=== PATIENT | female | born 1945 | race Caucasian/White ===

== ENCOUNTER 2022-05-27 23:24 | Emergency (ER) | payer MEDICARE, OTHER, SELFPAY ==
[2022-05-27 23:34] VITALS: BP 165/95; PULSE 78; RESP 20; TEMP 35.8; O2SAT 98; BMI 28.1
--- NOTE | 2022-05-28 00:05 | ED_ITS ---
HPI - General Adult General Time Seen by Provider: 00:06 Date Seen: 05/28/22 Chief complaint: Neck Injury/Pain Stated complaint: No feeling on left side. Time Seen by Provider: 05/27/22 23:55 Source: patient Mode of arrival: ambulatory Limitations: no limitations History of Present Illness HPI narrative: 76-year-old female who comes in with left-sided neck pain. Patient was pushing herself up out of bed with her left arm this morning felt a pop in her neck with immediate onset of pain. Pain is worse with movement, better if she holds still. No fall. Was seen in clinic given prescription for Flexeril which she did not fill she is doing okay but then this evening turned insert having increased pain again. She did have some shooting pain down her left arm but that is resolved. Denies chest pain or shortness of breath. No numbness, tingling, or weakness of the left arm. Review of Systems Status of ROS: Reports: 10 or more systems reviewed and unremarkable except as noted in History and below Exam Narrative: Exam Narrative: General: well nourished , NAD Head: Atraumatic and normocephalic ENT: External ears and external nose are normal Eyes: Conjunctiva clear, pupils are equal reactive, external ocular motions are intact Neck: Decreased motion of the neck especially turning to the left. Trapezius in the cervical paraspinous tenderness on the left. No midline cervical tenderness. Strength and sensation of the left arm intact. Lungs: No respiratory distress Musculoskeletal: No tenderness or deformity Neurologic: No gross focal neurologic deficits Skin: No rashes Psych: Mood and affect are appropriate Const: Vital Signs, click to edit/add: Vital Signs - 24 hr 05/27/22 23:34 Temperature 96.4 F L Pulse Rate [Right Pulse Oximeter] 78 Respiratory Rate 20 Blood Pressure [Le ft Upper Arm] 165/95 H Pulse Oximetry 98 Oxygen Delivery Me thod Room Air Course Course Hospital Course: Patient presents with neck pain today. Differential diagnosis includes but not limited to strain, sprain, fracture, arthritis, disc herniation. Patient with pain left side of the neck when pushing herself up out of bed, felt a pop, also had some shooting pain down left arm earlier. Cervical paraspinous spasm on the left with PCC patent as well. Symptoms are most consistent with strain or sprain, she may also have a small disc herniation has no neurologic dysfunction of the left upper extremity or cervical radicular symptoms at this time. Patient will be given a prescription for Flexeril and prednsione taper, and discharged in stable condition Vital Signs Vital signs: Initial Vital Signs Temperature 96.4 F L 05/27/22 23:34 Temperature Source Temporal Artery Scan 05/27/22 23:34 Pulse Rate 78 05/27/22 23:34 Pulse Rhythm 05/27/22 23:34 Respiratory Rate 20 05/27/22 23:34 Blood Pressure 165/95 H 05/27/22 23:34 Blood Pressure Mean 118 05/27/22 23:34 Blood Pressure Position Sitting 05/27/22 23:34 Pulse Oximetry 98 05/27/22 23:34 Oxygen Delivery Method 05/27/22 23:34 Vital Signs Temperature 96.4 F L 05/27/22 23:34 Pulse Rate 78 05/27/22 23:34 Respiratory Rate 20 05/27/22 23:34 Blood Pressure 165/95 H 05/27/22 23:34 Pulse Oximetry 98 05/27/22 23:34 Oxygen Delivery Method 05/27/22 23:34 Temperature 96.4 F L 05/27/22 23:34 Pulse Rate 78 05/27/22 23:34 Respiratory Rate 20 05/27/22 23:34 Blood Pressure 165/95 H 05/27/22 23:34 Pulse Oximetry 98 05/27/22 23:34 Oxygen Delivery Method 05/27/22 23:34 Medical Decision Making Medical Records Medical records reviewed: Yes I reviewed the patient's medical records Lab Data Lab results reviewed: Yes I reviewed the patient's lab results Discharge Plan Discharge Clinical Impression: Cervical disc herniation, Cervical muscle strain Patient Disposition: Home, Self-Care Condition: Stable Instructions: Cervical Strain (DC), Cervical Disc Herniation (ED) Additional Instructions: Take Tylenol for pain. Take prednisone as prescribed. Take Flexeril as prescribed. Follow-up with your primary care doctor this week. Activity Level: Activity as Tolerated Discharge Diet: Regular Follow Up/Referrals: Ananth Gale MD [Primary Care Provider] - Stand Alone Forms: [employer] Info Instructions
== END 2022-05-28 00:43 | disposition home or self-care (01) ==
PROVIDERS: Emergency Provider Family Medicine; PCP Family Medicine
DX: M50.20 Other cervical disc displacement, unspecified cervical region (principal)
CPT/HCPCS: 99282; 99283

== ENCOUNTER 2022-06-12 08:32 | Emergency (ER) | payer MEDICARE, OTHER, SELFPAY ==
[2022-06-12] VITALS (11 sets, daily range): BP systolic 102–141; BP diastolic 64–88; PULSE 68–79; RESP 16–18; TEMP 36.2; O2SAT 93–100; BMI 27.4
--- NOTE | 2022-06-12 09:03 | CRLHL7_ITS ---
For Patients: As a result of the Century Cures Act, medical imaging exams and procedure reports are released immediately into your electronic medical record. You may view this report before your referring provider. If you have questions, please contact your health care provider. Indication: Vision change, pupil change in headache Technique: Volumetric multidetector CT images of the head were obtained without the administration of low osmolar intravenous contrast. Comparison: None available Findings: There is no intra-axial or extra-axial fluid collection. There is no mass effect or midline shift. There is age-related cortical atrophy with mild sulcal widening and ex vacuo dilatation of the lateral ventricles. There is demonstration of prominent extra-axial CSF space within the posterior fossa commensurate with likely sharri cisterna magna versus arachnoid cystic changes. There are chronic small vessel disease changes in the subcortical and periventricular white matter without lost daily-white differentiation. The orbits and their contents are grossly within normal limits. The bony calvarium is grossly intact. The paranasal sinuses are clear. The mastoid air cells are well aerated. Impression: 1. Age-related changes of the brain without acute intracranial abnormality. Please note that all CT scans at this facility use dose modulation, iterative reconstruction, and/or weight-based dosing when appropriate to reduce radiation dose to as low as reasonably achievable. Dictated by Nathan Royal MD @ 06/12/2022 9:50:06 AM (Electronically Signed)
--- NOTE | 2022-06-12 09:05 | ED.NURSE ---
Risk Assessor assessment of patient as follows: Patient alert and oriented x4. She awoke this morning with blurred vision in left eye. Denies any recent visual procedures or changes otherwise, wears glasses regularly. Drove herself to her PT appointment where therapist thought her left eye was not responding to light. They sent patient to ED for evaluation. Patient with nausea intermittently this morning. Has throbbing sensation in right frontal area. No weakness or deficits to extremities, smile equal, speech normal. 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 Slight nausea at time of exam. Patient accompanied by today. Per facility manager, patient was ambulatory into ED without difficulty.
--- NOTE | 2022-06-12 09:09 | ED.NURSE ---
Patient to radiology for CT scan via wheelchair. She notes nausea has resolved at this time. Has a throbbing sensation in right frontal area of head. Blurred vision to left eye persists.
--- NOTE | 2022-06-12 09:18 | ED.NURSE ---
Dr. Cooley in with patient for exam.
--- NOTE | 2022-06-12 09:31 | CRLHL7_ITS ---
For Patients: As a result of the Cures Act, medical imaging exams and procedure reports are released immediately into your electronic medical record. You may view this report before your referring provider. If you have questions, please contact your health care provider. INDICATION: POSSIBLE MASS TECHNIQUE: Chest 2 views COMPARISON: None FINDINGS: Cardiovascular and mediastinum: Cardiac silhouette upper limits normal. Vascular calcifications in the aortic arch. Normal central pulmonary vessels. Lungs and pleural spaces: Lungs are clear. No sign of infiltrate or mass. No sign of pleural effusion. No pneumothorax. Bones and soft tissues: No significant findings. IMPRESSION: Clear lungs. No suspicious findings. Dictated by Ananth Rodriguez MD @ 06/12/2022 10:34:55 AM (Electronically Signed)
[2022-06-12 09:58] LABS: Basophils Absolute Auto 0.03 K/uL (0.00-0.30); Basophils Percent Auto 0.6 % (0.0-3.0); Eosinophils Absolute Auto 0.02 K/uL (0.00-0.50); Eosinophils Percent Auto 0.4 % (0.0-7.0); Hematocrit 40.3 % (33.0-51.0); Hemoglobin* 13.5 gm/dL (12.0-16.0); Lymphocytes Percent Auto 30.1 % (20-44); Mean Corpuscular HGB Conc 34 gm/dL (32-36); Mean Corpuscular Hemoglobin 32 pg (26-34); Mean Corpuscular Volume 94 fL (80-100); Monocytes Percent Auto 6.8 % (0.0-11.0); Neutrophils Percent Auto 62.1 % (42.0-72.0); Platelet Count* 306 K/uL (140-440); RDW Coefficient of Variation % 12.1 % (11.5-15.5); Red Blood Count 4.29 m/uL (4.00-5.20); White Blood Count* 5.31 K/uL (4.50-11.00)
[2022-06-12 10:01] LABS: Slide Review Reflex No
[2022-06-12 10:07] LABS: Chloride* 99 mmol/L (96-114)
[2022-06-12 10:08] LABS: Potassium* 4.2 mmol/L (3.6-5.1); Sodium* 135 mmol/L (135-149)
[2022-06-12 10:10] LABS: Creatinine* 0.6 mg/dL (0.5-1.5); Estimated Glomerular Filt Rate 94 ml/min
[2022-06-12 10:11] LABS: Blood Urea Nitrogen* 15 mg/dL (7-30); Calcium* 9.7 mg/dL (8.4-10.6); Carbon Dioxide* 31 mmol/L (20-32); Glucose* 106 mg/dL (60-115)
[2022-06-12 10:15] LABS: C Reactive Protein* < 0.5 mg/dL (0.5-1.0)
--- NOTE | 2022-06-12 10:21 | CRLHL7_ITS ---
For Patients: As a result of the Cures Act, medical imaging exams and procedure reports are released immediately into your electronic medical record. You may view this report before your referring provider. If you have questions, please contact your health care provider. INDICATION: Vision loss in the right eye. TECHNIQUE: Sagittal T1 axial FLAIR T2 diffusion-weighted and susceptibility weighted images of the brain. COMPARISON: CT brain dated 06/12/2022. FINDINGS: The lateral 3rd and 4th ventricles are normal in size and shape. There is no evidence of recent ischemic infarction. There are no areas of diffusion restriction. There is no evidence of intracranial hemorrhage. There are a few small foci of FLAIR/T2 hyperintensity within the supratentorial white matter that are consistent with mild chronic microvascular ischemia as well as prominent perivascular fluid spaces. 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 The brainstem and cerebellum otherwise appear normal. Usual expected flow voids within the intracranial internal carotid and basilar arteries and proximal trunks of the major cerebral arteries implies gross patency of these major vascular structures. No posterior orbital or suprasellar mass. Minimal fluid signal in the left petrous apex. The paranasal sinuses are otherwise clear. IMPRESSION: 1. No evidence of acute infarction, intracranial hemorrhage, mass nor posterior orbital or suprasellar lesion is seen. 2. Few tiny signal changes consistent with mild chronic microvascular ischemia. Dictated by Weston Keys MD @ 06/12/2022 11:52:57 AM (Electronically Signed)
[2022-06-12] MEDS: LORazepam 2 MG/ML inj 1 MG IVP (10:46)
[2022-06-12] MEDS: ASPIRIN 81 MG TAB.CHEW 324 MG PO (10:46)
--- NOTE | 2022-06-12 10:56 | ED.NURSE ---
Patient to radiology for MRI.
--- NOTE | 2022-06-12 15:59 | ED.EYEPROB ---
HPI - Eye Problem General Chief complaint: Eye Problems Stated complaint: Blurry vission in left eye/pupil not reacting Time Seen by Provider: 06/12/22 08:38 History of Present Illness HPI Narrative: Patient is a very nice 76-year-old female who presents here for evaluation blurriness in her left eye. Had this since this morning she woke up at 4:30 a.m., she notes that she closes her right eye is blurry but she closes her left eye that she is able to see normal. Have any pain in the eye, there is no feeling like a black she ate is been pulled over I or feeling she can not see out of the sides. She denies this happening previously, this is not associated with any headache diplopia double vision fevers chills or sweats, or any other complaints. Went to see her physical therapist today that she is going to for exercises, she thought her eyes were unequal, and that she should be seen because there is no pupillary response. She does tell me that she has a history of anxiety also. chief complaint: vision change Onset (ago): hour(s) (6) Onset description: awoke with symptoms Duration: constant Location: left eye Eye Symptoms: blurry vision Place: home Mechanism: none Severity: mild Associated symptoms: none Treatments Prior to Arrival: none Related Data Patient tetanus UTD: Yes Home Medications Medication Instructions Recorded Confirmed atorvastatin 40 mg tablet mg 06/12/22 famotidine 20 mg tablet mg 06/12/22 rosuvastatin 10 mg tablet mg 06/12/22 Allergies Allergy/AdvReac Type Severity Reaction Status Date / Time fentanyl AdvReac Severe Verified 06/12/22 09:10 ciprofloxacin [From Cipro] AdvReac Intermediate Diarrhea Verified 06/12/22 09:10 codeine AdvReac Intermediate nausea and Verified 06/12/22 09:10 vomiting Review of Systems Status of ROS: Reports: 6 or more systems reviewed and unremarkable except as noted in History and below [facility] Social History Smoking Status: Never smoker Do you use any of these nicotine containing products: None Second hand tobacco smoke exposure: No How often do you have a drink containing alcohol: never How often do you have six or more drinks on one occasion: Never AUDIT-C Alcohol total score: 0 Non-prescribed substance use: denies use service: No Exam Narrative: Exam Narrative: Patient is seen and stab 2 in no apparent distress, she is speaking to me normally and eloquent, her speech is normal, pupils are equal round reactive to light, I do not see any inequality, fundi appear normal to this examiner, visual dutta are normal from my testing. Extraocular muscles are normal, face is normal, cranial nerves 3-12 are normal, her TMs are normal, oropharynx is normal carotid upstrokes are equal bilaterally JVP is flat, chest is clear evaluate wheezing crackles noted heart sounds are normal, abdomen is soft there is no guarding, her strength is normal distally and proximally, good coordination is noted, finger-nose testing is normal, with some past pointing noted in her right and the left. Skin reveals no petechiae rashes, is able to walk normally., Const: Vital Signs, click to edit/add: Vital Signs - 24 hr 06/12/22 08:52 06/12/22 09:05 06/12/22 09:05 Temperature 97.2 F L Pulse Rate [Right Pulse Oximeter] 68 74 74 Respiratory Rate 18 18 16 Blood Pressure [Ri ght Upper Arm] 132/74 128/88 128/88 Pulse Oximetry 93 99 99 Oxygen Delivery Wa thod Room Air Room Air Room Air 06/12/22 09:20 06/12/22 09:35 06/12/22 09:50 Temperature Pulse Rate [Right Pulse Oximeter] 71 76 79 Respiratory Rate 16 16 16 Blood Pressure [Ri ght Upper Arm] 132/70 126/83 102/75 Pulse Oximetry 100 100 [facility] Air 06/12/22 10:05 06/12/22 10:20 06/12/22 10:35 Temperature Pulse Rate [Right Pulse Oximeter] 71 68 75 Respiratory Rate 16 16 18 Blood Pressure [Ri ght Upper Arm] 119/68 139/73 139/64 Pulse Oximetry 98 99 99 [facility] Room Air Room Air 06/12/22 10:50 06/12/22 12:00 06/12/22 13:00 Temperature Pulse Rate [Right Pulse Oximeter] 76 74 79 Respiratory Rate 16 16 16 Blood Pressure [Ri ght Upper Arm] 141/75 H 129/74 134/80 Pulse Oximetry 99 99 99 Oxygen Delivery Me thod Room Air Room Air Room Air Documenting provider has reviewed patient's vital signs: yes Course Course Hospital Course: Course in the emergency room has been 1 of stability, I was able to do a CT of her head which is negative MRI was negative also, her laboratory tests were all reassuring. She is have some blurry altered vision in her left eye which was confirmed on visual acuity testing. I did talk to speak to net software engineer will see her tomorrow in follow-up. I think this is reasonable and patient was very fine with this plan. Vital Signs Vital signs: Initial Vital Signs Temperature 97.2 F L 06/12/22 08:52 Temperature Source Temporal Artery Scan 06/12/22 08:52 Pulse Rate 68 06/12/22 08:52 Respiratory Rate 18 06/12/22 08:52 Blood Pressure 132/74 06/12/22 08:52 Blood Pressure Mean 93 06/12/22 08:52 Blood Pressure Position Sitting 06/12/22 08:52 Pulse Oximetry 93 06/12/22 08:52 Oxygen Delivery Method 06/12/22 08:52 Vital Signs Temperature 97.2 F L 06/12/22 08:52 Pulse Rate 68 06/12/22 08:52 Respiratory Rate 18 06/12/22 08:52 Blood Pressure 132/74 06/12/22 08:52 Pulse Oximetry 93 06/12/22 08:52 Oxygen Delivery Method 06/12/22 08:52 Temperature 97.2 F L 06/12/22 08:52 Pulse Rate 79 06/12/22 13:00 Respiratory Rate 16 06/12/22 13:00 Blood Pressure 134/80 06/12/22 13:00 Pulse Oximetry 99 06/12/22 13:00 Oxygen Delivery Method 06/12/22 13:00 MDM - Eye Problem Differential Diagnosis Differential diagnosis: Likely corneal abrasion, conjunctivitis, acute iritis, hyphema, periorbital cellulitis, subconjunctival hemorrhage, glaucoma, corneal ulcer and ruptured globe Medical Records Attestation: I reviewed the patient's medical records. Lab Data Attestation: I reviewed the patient's lab results. Labs: Lab Results 06/12/22 06/12/22 Range/Units 09:50 09:50 WBC 5.31 (4.50-11.00) K/uL RBC 4.29 (4.00-5.20) m/uL Hgb 13.5 (12.0-16.0) gm/dL Hct 40.3 (33.0-51.0) % MCV 94 (80-100) fL MCH 32 (26-34) pg MCHC 34 (32-36) gm/dL RDW Coeff of Akhil 12.1 (11.5-15.5) % Plt Count 306 (140-440) K/uL Neut % (Auto) 62.1 (42.0-72.0) % Lymph % (Auto) 30.1 (20-44) % [place] % (Auto) 6.8 (0.0-11.0) % Eos % (Auto) 0.4 (0.0-7.0) % Baso % (Auto) 0.6 (0.0-3.0) % Neut # (Auto) 3.30 (1.7-7.0) K/uL Lymph # (Auto) 1.60 (0.90-2.90) K/uL [place] # (Auto) 0.40 (0.00-0.90) K/UL Eos # (Auto) 0.02 (0.00-0.50) K/uL Baso # (Auto) 0.03 (0.00-0.30) K/uL Abs Immat Gran (auto) 0.00 (0.00-0.30) K/uL Sodium 135 (135-149) mmol/L Potassium 4.2 (3.6-5.1) mmol/L Chloride 99 (96-114) mmol/L Carbon Dioxide 31 (20-32) mmol/L BUN 15 (7-30) mg/dL Creatinine 0.6 (0.5-1.5) mg/dL Estimated Creat Clear 45.50 Estimated GFR 94 ml/min Glucose 106 (60-115) mg/dL Calcium 9.7 (8.4-10.6) mg/dL C-Reactive Protein < 0.5 L (0.5-1.0) mg/dL Imaging Data CT scan - head: Attestation: I have reviewed the pertinent imaging results. Radiologist's impression: Patient: NASIMA WOOD Facility: [facility] Site . Site : 1945 Study: MRI Head WITHOUT-06/12/2022 11:35:15 AM Ordering Physician: Lenora Conte Final Report: INDICATION: Vision loss in the right eye. TECHNIQUE: Sagittal T1 axial FLAIR T2 diffusion-weighted and susceptibility weighted images of the brain. COMPARISON: CT brain dated 06/12/2022. FINDINGS: The lateral 3rd and 4th ventricles are normal in size and shape. There is no evidence of recent ischemic infarction. There are no areas of diffusion restriction. There is no evidence of intracranial hemorrhage. There are a few small foci of FLAIR/T2 hyperintensity within the supratentorial white matter that are consistent with mild chronic microvascular ischemia as well as prominent perivascular fluid spaces. 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 The brainstem and cerebellum otherwise appear normal. Usual expected flow voids within the intracranial internal carotid and basilar arteries and proximal trunks of the major cerebral arteries implies gross patency of these major vascular structures. No posterior orbital or suprasellar mass. Minimal fluid signal in the left petrous apex. The paranasal sinuses are otherwise clear. IMPRESSION: 1. No evidence of acute infarction, intracranial hemorrhage, mass nor posterior orbital or suprasellar lesion is seen. 2. Few tiny signal changes consistent with mild chronic microvascular ischemia. Dictated by Weston Keys MD @ 06/12/2022 11:52:57 AM (Electronic Signature) Patient: [facility] Facility: [facility] Site . Site : 1945 Study: XRay Chest 3 IMAGES-06/12/2022 10:08:38 AM Ordering Physician: Lenora Conte Final Report: INDICATION: POSSIBLE MASS TECHNIQUE: Chest 2 views COMPARISON: None FINDINGS: Cardiovascular and mediastinum: Cardiac silhouette upper limits normal. Vascular calcifications in the aortic arch. Normal central pulmonary vessels. Lungs and pleural spaces: Lungs are clear. No sign of infiltrate or mass. No sign of pleural effusion. No pneumothorax. Bones and soft tissues: No significant findings. IMPRESSION: Clear lungs. No suspicious findings. Dictated by Ananth Rodriguez MD @ 06/12/2022 10:34:55 AM (Electronic Signature) Patient: [facility] Facility: [facility] Site . Site : 1945 Study: CT Head W/O-06/12/2022 9:20:20 AM Ordering Physician: Lenora Conte Final Report: Indication: Vision change, pupil change in headache Technique: Volumetric multidetector CT images of the head were obtained without the administration of low osmolar intravenous contrast. Comparison: None available Findings: There is no intra-axial or extra-axial fluid collection. There is no mass effect or midline shift. There is age-related cortical atrophy with mild sulcal widening and ex vacuo dilatation of the lateral ventricles. There is demonstration of prominent extra-axial CSF space within the posterior fossa commensurate with likely sharri cisterna magna versus arachnoid cystic changes. There are chronic small vessel disease changes in the subcortical and periventricular white matter without lost daily-white differentiation. The orbits and their contents are grossly within normal limits. The bony calvarium is grossly intact. The paranasal sinuses are clear. The mastoid air cells are well aerated. Impression: 1. Age-related changes of the brain without acute intracranial abnormality. Please note that all CT scans at this facility use dose modulation, iterative reconstruction, and/or weight-based dosing when appropriate to reduce radiation dose to as low as reasonably achievable. Dictated by Nathan Royal MD @ 06/12/2022 9:50:06 AM (Electronic Signature) ECG Data Attestation: I personally reviewed and interpreted this ECG as follows: Interpretation: Normal sinus rhythm, the 1st EKG look like atrial fibrillation but I disagreed with the computer interpretation as it looks like it is start effect. No acute ST wave changes. Discharge Plan Discharge Clinical Impression: Blurred vision, left eye Patient Disposition: Home w/ Parent or Adult Condition: Stable Instructions: Blurred Vision (ED) Additional Instructions: Home, rest, aspirin 81 mg a day, follow-up tomorrow at 10:20 a.m. with [facility] and Dr. Rossi. Reassurance given. Prescriptions: No Action atorvastatin 40 mg tablet famotidine 20 mg tablet rosuvastatin 10 mg tablet Follow Up/Referrals: Ananth Gale MD [Primary Care Provider] - Stand Alone Forms: [employer] Info Instructions
== END 2022-06-12 13:33 | disposition home or self-care (01) ==
PROVIDERS: Emergency Provider Family Medicine; PCP Family Medicine
DX: H53.8 Other visual disturbances (principal)
CPT/HCPCS: 36415; 70450; 70551; 71046; 80048; 85025; 86140; 93005; 96374; 99283; 99285; A9270; J2060

== ENCOUNTER 2022-06-14 15:19 | Outpatient (CLI) | payer MEDICARE, OTHER, SELFPAY ==
--- OUTSIDE RECORDS SUMMARY | 2022-06-14 15:21 | XMS_ITS | Clinical Summary ---
:1945 Author Organization [facility] [place] [address] Care Team Providers Name Role Phone Shirin Cutler MD Primary Care Provider Allergies Active Allergy Reactions Severity Noted Date Comments Ciprofloxacin Diarrhea 03/17/2013 Codeine Vomiting 11/06/2007 Fentanyl Nausea And Vomiting High 09/02/2019 Pentazocine Behavioral Disturbances 11/07/2007 Medications Medication Sig Dispensed Refills Start End Status Date Date MECLIZINE 12.5 MG 12.5-25 mg Oral 0 0 11/08/19 Active TAB EVERY 6 HOURS 08 NEEDED CALCIUM 500 + D 1-2 tabs daily 0 02/08/20 Active (D3) 500 MG-125 09 UNIT TAB cholecalciferol Take 1 tablet by 0 10/14/19 Active (VITAMIN D3) 1,000 mouth once daily. 10 unit tablet acetaminophen Take by mouth 0 02/21/20 Ac tive (TYLENOL) 325 mg every 4 hours if 17 tablet needed. Max acetaminophen dose: 4000mg in 24 hrs. lutein 20 mg Take 1 capsule by 0 09/08/19 Active capsule mouth once daily. 20 fluticasone (50 mcg Inhale 1 [place] 48 g 5 09/22/19 Active per actuation) into both 21 nasal solution nostrils once (FLONASE)Indication daily. s: Non-seasonal allergic rhinitis due to pollen rosuvastatin Take 1 Tablet (10 90 Tablet 3 12/07/19 Active (CRESTOR) 10 mg mg) by mouth at 22 tabletIndications: bedtime. Palpitations LORazepam (ATIVAN) Take 1-2 Tablets 30 tablet. 1 02/17/20 Active 0.5 mg (0.5-1 mg) by 22 tabIndications: mouth every 6 Anxiety hours if needed for Anxiety. famotidine (PEPCID) Take 1 Tablet (20 180 Tablet 3 04/16/20 Active 20 mg mg) by mouth in 22 tabletIndications: the morning and 1 Chronic GERD Tablet (20 mg) in the evening. cyclobenzaprine Take 1 Tablet (5 15 Tablet 0 05/27/20 Discontinued (FLEXERIL) 5 mg mg) by mouth 3 22 022 (Reorder tabletIndications: times daily if (E-cancel not Upper back pain on needed for Muscle sent)) left side Spasm. cyclobenzaprine Take 1 Tablet (5 15 Tablet 0 06/06/20 Discontinued (FLEXERIL) 5 mg mg) by mouth 3 22 022 (*Med tabletIndications: times daily if complete/Regime Upper back pain on needed for Muscle n left side Spasm. complete/L evel of care ch veronique) nystatin Swish and spit 5 473 mL 0 06/06/20 Dis continued (MYCOSTATIN) mL (500,000 22 022 (*Med 100,000 unit/mL units) by mouth complete/Regime suspensionIndicatio four times daily. n ns: Thrush, oral com plete/Level of care ch veronique) Active Problems Problem Noted Date Hyperlipidemia 11/08/2014 Adenomatous colon polyp 10/23/2013 Overview: Colonoscopy 09/2013 polyp repeat in 2 yea rs Colonoscopy 11/2015 polyp repeat in 5 yea rs Abdominal pain, generalized 11/07/2007 Diarrhea 11/07/2007 Dizziness and giddiness 11/07/2007 Encounters Date Type Specialty Care Team Description 06/14/2022 Office Visit Shirin Cutler, Follow U p (ED follow up MD ); Memory Loss (After resting yesterday afternoon, coul d not remember anythi ng./) 06/14/2022 Travel 06/12/2022 Orders Only Scanner <No scans attac hed> 06/06/2022 Office Visit Shirin Cutler, Follow U p (Urgent care MD visit 06/03 cer vical pain//ED after ); Immunization/In jection; Medication List Update (Her flexeril i s 10 mg/) 06/06/2022 Travel 05/27/2022 Office Visit Janelle Yuan, NATI Neck Truong n/problem 05/27/2022 Travel 05/11/2022 Ancillary Procedure 05/11/2022 Travel 05/08/2022 Travel 04/16/2022 Office Visit Shirin Cutler Establis h Care; Reflux (Has been getti ng worse); Anxiety ; Derm Problem (Spot o n scalp) 04/15/2022 Travel from Last 3 Months Immunizations Name Administration Dates Next Due AMB INFLUENZA IIV3 (AGE 65+ YRS) PF 06/13/2018, 06/14/2017 (Flu Clinic Only) AMB Influenza, IIV3 (Age >=3 06/16/2013, 06/10/2012, 011 years)(Flu Clinic Only) AMB Influenza, IIV4 PF (=>6 mos 05/29/2019 Flulaval,Fluzone Fluarix)(Flu Clinic Only) Amb Influenza, Inact (High-dose) (Flu 06/19/2016, 06/15/2014 Clinic Only) Amb Influenza, Inactivated AIIV4 (Age 1006/08/2020 65+ Years) Preserv Free Influenza A (H1N1), Inactivated (Age 1106/26/2009 >=3 Years) Influenza Virus, Unspecified 05/16/2009, 07/21/2004 Influenza, High-dose Inactivated 06/19/2016, 06/13/2015, Influenza, IIV3 (Age 6-35 mos) 06/13/2011 Influenza, IIV3 (Age >=3 years) 06/16/2013, 06/10/2012, 05/26, 05/26/2009, 06/13/2008, 06/16/2007, 07/21/2004 Influenza, Inactivated AIIV4 (Age 65+ 06/06/2022, 05/05/2021 Years) Preserv Free Pneumococcal Poly,23-Valent 11/04/2013 (Pneumovax) Pneumococcal conj 13-Valent (Prevnar 11/16/2015 13) Td (Age >=7 Years) 07/29/2008, 05/30/1999 Td, Preservative Free (age >= 7 07/29/2008 Years) Tdap 10/21/2018 Zoster (Shingrix-RZV, recombinant) 03/14/2022, 11/06/2021 Family History Medical History Relation Name Comments Heart Disease Father 74 heart at tack Heart attack Half-Brother 1 Heart attack Half-Brother 2 Lung cancer Half-Brother 2 chemical exposur e Cancer-breast Half-Sister 1 Heart attack Half-Sister 1 Heart attack Half-Sister 2 Diabetes Mother Atrial fibrillation Sister Diabetes Sister Relation Name Status Comments Father Half-Brother 1 Other Half-Brother 2 Other Half-Sister 1 Other Half-Sister 2 Mother Sister Social History Tobacco Use Types Packs/Day Years Used Date Never Smoker Smokeless Tobacco: Never Used Tobacco Cessation: Counseling Given: Yes Alcohol Use Standard Drinks/Week Comments Yes 1 (1 standard drink = 0.6 oz pure alcoho l) 1-2 glasses or wine per week Alcohol Habits Answer Date Recorded How often do you have a drink containing 2-4 times a month 09/22/2020 alcohol? How many drinks containing alcohol do you 1 or 2 09/08/2019 have on a typical day when you are drinking? How often do you have six or more drinks Never 09/08/2019 on one occasion? Comment: 1-2 glasses or wine per week 04/16/2022 Sex Assigned at Date Recorded Not on file COVID-19 Exposure Response Date Recorded In the last 10 days, have you been in contact with No / Unsu re 06/14/2022 5:46 AM CDT someone who was confirmed or suspected to have Coronavirus/COVID-19? Obstetrics History Para Term AB IAB SAB Ectopic Multiple Living Live Births 2 2 2 Date Outcome GA Total Labor/2nd/3rd Weight Sex Delivery Anes PTL Layla A 1 A5 Name Clin Labor Term Term Last Filed Vital Signs Vital Sign Reading Time Taken Comments Blood Pressure 140/86 06/14/2022 12:52 PM CDT Pulse 80 06/14/2022 12:52 PM CDT Temperature 36.7 ??C (98 ??F) 06/14/2022 12:52 PM CDT Respiratory Rate 18 05/27/2022 1:12 PM CDT Oxygen Saturation 99% 06/14/2022 12:52 PM CDT Inhaled Oxygen Concentration - - Weight 76.7 kg (169 lb) 06/14/2022 12:52 PM CDT Height 169 cm (5' 6.54) 04/16/2022 2:13 PM CDT with sa venkat Body Mass Index 26.84 04/16/2022 2:13 PM CDT Plan of Treatment Health Maintenance Due Date Last Done Comments Fecal testing non-DNA 1991 (FIT,FOBT,iFOBT) for age 45-75 Depression screening for age 12+ 10/10/2022 10/10/2021, , 05/05/2021, Additional history exists Medicare Wellness for age 65+ 10/10/2022 10/10/2021, 2020, 09/08/2019, Additional history exists BMI (ht and wt on same day) for 04/16/2023 04/16/2022, 11/24, age 18+ 10/10/2021, Additional history exists Mammogram for age 45-75 05/11/2023 05/11/2022, 05/05/2021, 08/27/2019, Additional history exists Lipids for age 45-75 10/10/2026 10/10/2021, 09/22/2020, 09/08/2019, Additional history exists Tetanus booster 10/21/2028 10/21/2018, 07/29/2008, 07/29/2008, Additional history exists Pneumococcal series for age 65+ Completed 11/16/2015, 10/24 DEXA/DXA scan for age 65+ Completed 09/04/2018, 11/11/2014 Hepatitis C screening for age Completed 09/04/2018 18-79 Tdap Completed 10/21/2018 Zoster (shingles) series for age Completed 03/14/2022, 50+ COVID-19 vaccine series Completed 05/30/2022, 11/29/2021, 06/16/2021, Additional history exists Influenza for age 65+ Completed 06/06/2022, 05/05/2021, 06/08/2020, Additional history exists Procedures Procedure Name Priority Date/Time Associated Diagnosis Comme nts SCAN-RADIOLOGY 06/12/2022 12:00 AM Result s for this REPORT CDT procedure are i n the results section. XR MAMMO BILAT Routine 05/11/2022 8:19 AM Visit for screening Results for this SCREENING CDT mammogram procedure are i n the results section. from Last 3 Months Results SCAN-RADIOLOGY REPORT (06/12/2022 12:00 AM CDT) Narrative This result has an attachment that is no t available. Scanner OTHER XR MAMMO BILAT SCREENING (05/11/2022 8:19 AM CDT) Anatomical Region Laterality Modality BREASTS, Breast Left, Breast Right Bilateral Mammo graphy Specimen (Source) Anatomical Location Collection Method / Collectio n Time Received Time / Laterality Volume Impressions 05/11/2022 12:49 PM CDT ??There is no radiographic evidence for malignancy. ??Recommend annual mammograms. MAMMOGRAM ASSESSMENT: ??ACR 1 Negative PATIENTS: You will also receive a letter with your examination results in an easy to read format. ??If you have qu estions about your results, please contact your referring provider. Narrative 05/11/2022 12:49 PM CDT For Patients: As a result of the Cures Act, medical imaging exams and procedure reports are released immediately into your electronic medical record. You may view this report before your referring provider. If you have questions, please contact [facility] provider. XR MAMMO BILAT SCREENING [[id number]] CLINICAL HISTORY: ??This is an asymptoma tic 76 y.o. patient. INDICATION FOR EXAM: Mammogram Screening . TECHNIQUE: CC & MLO views were obtained. ??This study was evaluated with the assistance of Computer-Aided Detecti on. COMPARISON FILM: Yes 05/05/21 [employer] [facility] 08/27/19 [employer] FINDINGS: ??The breasts have scattered a reas of fibroglandular density. There are no dominant masses, suspicious micro calcifications or areas of architectural distortion. Shirin Cutler MD MAMMO from Last 3 Months Insurance Payer Benefit Plan / Subscriber ID Effective Dates Phone Addre ss Type Group MEDICA MR MEDICA PRIME [id number] 2017-Present [address] [address] [employer] [place] , [facility] [place] [id number] Advance Directives Latest Code Status on File Code Status Date Activated Date Inactivated Comments Full Code 11/07/2007 1:25 AM 11/08/2007 1:01 PM Care Teams Scrap Baler Relationship Specialty Start Date End Date Shirin Cutler MD PCP - General Family Practice 05/11/22 [address] [place] [address]
--- NOTE | 2022-06-14 16:30 | CRLHL7_ITS ---
For Patients: As a result of the 21st Century Cures Act, medical imaging exams and procedure reports are released immediately into your electronic medical record. You may view this report before your referring provider. If you have questions, please contact your health care provider. INDICATION: Acute memory impairment. TECHNIQUE: MRI brain: Multiplanar multisequence MR imaging acquired through the brain prior to and following intravenous contrast. MRA head: [id number] imaging acquired. MRA neck: [id number] and postcontrast imaging acquired. COMPARISON: CT brain 06/12/2022. FINDINGS: MRI brain: The ventricles and sulci are within normal limits for patient age. No supratentorial mass effect or midline shift. Two punctate T2 FLAIR hyperintensities within the right frontal white matter, nonspecific. Incidental small midline retrocerebellar arachnoid cyst. No intracranial hemorrhage or pathologic extra-axial fluid collection. No diffusion restriction to suggest acute infarction. No pathologic intracranial enhancement. The major arterial flow voids of the skullbase are preserved. The globes are symmetric. Minimal ethmoid sinus mucosal thickening. Trace left mastoid fluid. Hyperostosis frontalis interna. MRA head: The visualized internal carotid, middle cerebral, and anterior cerebral arteries are widely patent. The vertebral, basilar, and posterior cerebral arteries are widely patent. No intracranial aneurysm or high-flow vascular malformation. MRA neck: The brachiocephalic trunk and subclavian arteries are widely patent. The common carotid arteries are widely patent. The internal carotid arteries are widely patent. The right vertebral artery is dominant. The vertebral arteries are widely patent. IMPRESSION: 1. No acute intracranial abnormality. 2. Two punctate T2 FLAIR hyperintensities in the supratentorial white matter are nonspecific, though typical for sequelae of minimal chronic microvascular ischemic changes or migraine headaches. 3. Unremarkable MRA of the head and neck. Dictated by Chetan La MD @ 06/14/2022 5:56:26 PM (Electronically Signed)
== END 2022-06-14 15:20 | disposition home or self-care (01) ==
LOC: MRI 15:20
PROVIDERS: PCP Family Medicine; Visit Provider Family Medicine
DX: R41.3 Other amnesia (principal); I67.82 Cerebral ischemia; H53.132 Sudden visual loss, left eye
CPT/HCPCS: 70544; 70549; 70553; A9575

== ENCOUNTER 2022-09-13 12:18 | Emergency (ER) | payer MEDICARE, OTHER, SELFPAY ==
[2022-09-13] VITALS (29 sets, daily range): BP systolic 133–159; BP diastolic 74–102; PULSE 66–81; RESP 16; TEMP 37.1; O2SAT 93–100
--- NOTE | 2022-09-13 | CRLHL7_ITS ---
For Patients: As a result of the Century Cures Act, medical imaging exams and procedure reports are released immediately into your electronic medical record. You may view this report before your referring provider. If you have questions, please contact your health care provider. INDICATION: Headache and dizziness TECHNIQUE: CT head without contrast. COMPARISON: Head CT 06/12/2022 FINDINGS: CSF spaces: Posterior fossa arachnoid cyst re-demonstrated. Brain parenchyma: The daily-white differentiation is normal. No sign of mass, hemorrhage, or midline shift. Skull base and calvarium: The visualized paranasal sinuses and mastoid air cells demonstrate no acute or significant findings. The visualized orbits are grossly unremarkable. No skull fractures. IMPRESSION: Unremarkable noncontrast head CT. No intracranial bleed or mass effect. Please note that all CT scans at this facility use dose modulation, iterative reconstruction, and/or weight-based dosing when appropriate to reduce radiation dose to as low as reasonably achievable. Dictated by Leobardo Ocasio MD @ 09/13/2022 1:00:18 PM (Electronically Signed)
--- NOTE | 2022-09-13 12:44 | ED_ITS ---
HPI - General Adult General Time Seen by Provider: 12:45 Date Seen: 09/13/22 Chief complaint: Nausea/Vomiting Stated complaint: Headache, dizzy, thinks it's a stroke Time Seen by Provider: 09/13/22 12:42 Source: patient, family, RN notes reviewed and old records reviewed Mode of arrival: ambulatory Limitations: no limitations History of Present Illness HPI narrative: Marilyn is a very pleasant 77-year-old female with a history of vestibular migraines, recent diagnosis of dementia/Alzheimer's as well as anxiety who comes to the emergency room with her for dizziness and headache. Patient notes she awoke about 645 this morning with a headache on the right side of her head and dizziness. She denies that the room is spinning. She states that she feels very uneasy and is having a hard time remembering things. She did awake at 4 in the morning but does not remember how she felt at that time. Last evening before she went to bed she did complain of a headache on the right side of her head and dozed in a chair before when she went to bed. At this time she denies chest pain numbness or tingling of the extremities vomiting or visual changes. Since May she has been on a baby aspirin daily after experiencing up possible TIA. She describes asymmetric pupils after seeing bright flashing lights in a stamp like configuration in her vision. She was seen he here at the emergency room underwent CT and MRI without any evidence of a stroke. She did have evidence of decreased brain size as well as some small punctate lesions thought to be microvascular disease. She was told to start baby aspirin a day and followed up with neuro Psychiatry after having an additional and counter where she awoke in the middle of the night and could not remember anything. This event prompted extensive evaluation in July and she was diagnosed with short-term memory loss and possibly dementia/Alzheimer's. She was started on Aricept recently but has only taken 2 doses. She is wondering if perhaps how she is feeling is related to the new medication. She states she feels nauseated dizzy and ?crazy as a loon?. Patient tells me that she has a history of what was described as vestibular migraines. When they were living in [place] many years ago at increased elevation she had episodes of headaches and dizziness and was seen by ENT and was told they had she had vestibular migraines. A ENT here in [place] also supported that diagnosis. When she feels that way she has Ativan that she takes that allows her to ?sleep through the migraine? and feel okay. She states that she took 1/4 of a tab of Ativan 0.5 mg earlier this morning along with Tylenol extra-strength. I do ask her if she thinks this is a vestibular migraine and she states that she feels more panicky and has a headache on the right side of her head. She does tell me that she fell 3 weeks ago while getting up out of the toilet and hit the right side of her head. She did not lose consciousness and did not follow-up for it. She notes that the headache had been getting better until the past 2 days after starting Aricept. No change in vision at this time. Related Data Home Medications Medication Instructions Recorded Confirmed atorvastatin 40 mg tablet mg 06/12/22 famotidine 20 mg tablet mg 06/12/22 rosuvastatin 10 mg tablet mg 06/12/22 donepezil 5 mg tablet mg 09/13/22 lorazepam 0.5 mg tablet mg 09/13/22 Allergies Allergy/AdvReac Type Severity Reaction Status Date / Time fentanyl AdvReac Severe Verified 09/13/22 13:49 ciprofloxacin [From Cipro] AdvReac Intermediate Diarrhea Verified 09/13/22 13:49 codeine AdvReac Intermediate nausea and Verified 09/13/22 13:49 vomiting Review of Systems Status of ROS: Reports: 10 or more systems reviewed and unremarkable except as noted in History and below Const: Denies: fever or chills Eyes: Denies: change in vision PFSH PFSH Social History Smoking Status: Never smoker Do you use any of these nicotine containing products: None Second hand tobacco smoke exposure: No How often do you have a drink containing alcohol: never How often do you have six or more drinks on one occasion: Never AUDIT-C Alcohol total score: 0 Non-prescribed substance use: denies use service: No Exam Narrative: Exam Narrative: Initial exam shows patient to be very anxious. She is making good eye contact and following commands. She is describing past history that is somewhat confusing to me. However, her face is symmetrical without droop. She is not slurring her speech. Speech content is appropriate. She is very anxious at this time. Almost tearful. She states that she has for gotten everything but yet is able to recall it when we ask her questions. Head is atraumatic normocephalic. Negative Quintana signs. Neck is supple without lymphadenopathy. Heart with regular rate and rhythm. Lungs are clear bilaterally. Abdomen soft nontender. She is moving all of her extremities without difficulty. Const: Vital Signs, click to edit/add: Vital Signs - 24 hr 09/13/22 12:35 09/13/22 12:50 09/13/22 12:36 Temperature 98.7 F Pulse Rate 78 Pulse Rate [Left P ulse Oximeter] 77 Respiratory Rate 16 16 Blood Pressure 159/84 H Blood Pressure [Ri ght Upper Arm] 159/84 H Pulse Oximetry 98 98 98 [facility] Room Air 09/13/22 12:47 09/13/22 12:49 09/13/22 13:00 Temperature Pulse Rate 70 71 71 Pulse Rate [Left P ulse Oximeter] Respiratory Rate 16 Blood Pressure 140/81 H Blood Pressure [Ri ght Upper Arm] Pulse Oximetry 99 98 98 [facility]xygen Delivery [facility] 09/13/22 13:02 09/13/22 13:03 09/13/22 13:15 Temperature Pulse Rate 71 68 66 Pulse Rate [Left P ulse Oximeter] Respiratory Rate Blood Pressure 143/78 H Blood Pressure [Ri ght Upper Arm] Pulse Oximetry 99 100 94 [facility]xygen [facility] 09/13/22 13:16 09/13/22 13:17 09/13/22 13:30 Temperature Pulse Rate 67 67 68 Pulse Rate [Left P ulse Oximeter] Respiratory Rate 16 Blood Pressure 141/79 H Blood Pressure [Ri ght Upper Arm] Pulse Oximetry 97 98 97 [facility]xygen Delivery [facility] 09/13/22 13:31 09/13/22 13:32 09/13/22 13:45 Temperature Pulse Rate 66 68 71 Pulse Rate [Left P ulse Oximeter] Respiratory Rate 16 Blood Pressure 145/94 H Blood Pressure [Ri ght Upper Arm] Pulse Oximetry 98 97 97 [facility] 09/13/22 13:46 09/13/22 13:47 09/13/22 14:11 Temperature Pulse Rate 75 76 81 Pulse Rate [Left P ulse Oximeter] Respiratory Rate 16 Blood Pressure 154/86 H Blood Pressure [Ri ght Upper Arm] Pulse Oximetry 97 93 99 Oxygen Delivery Me thod 09/13/22 14:15 09/13/22 14:16 09/13/22 14:30 Temperature Pulse Rate 78 80 78 Pulse Rate [Left P ulse Oximeter] Respiratory Rate Blood Pressure 139/74 Blood Pressure [Ri ght Upper Arm] Pulse Oximetry 98 99 98 Oxygen Delivery Me thod 09/13/22 14:31 09/13/22 14:45 09/13/22 14:48 Temperature Pulse Rate 78 75 77 Pulse Rate [Left P ulse Oximeter] Respiratory Rate Blood Pressure 133/96 H 150/85 H Blood Pressure [Ri ght Upper Arm] Pulse Oximetry 97 98 98 Oxygen Delivery Me thod 09/13/22 15:00 09/13/22 15:02 09/13/22 15:15 Temperature Pulse Rate 74 74 74 Pulse Rate [Left P ulse Oximeter] Respiratory Rate Blood Pressure 135/102 H Blood Pressure [Ri ght Upper Arm] Pulse Oximetry 97 95 96 Oxygen Delivery Me thod 09/13/22 15:30 09/13/22 15:34 Temperature Pulse Rate 73 71 Pulse Rate [Left P ulse Oximeter] Respiratory Rate Blood Pressure Blood Pressure [Ri ght Upper Arm] Pulse Oximetry 95 95 Oxygen Delivery Me thod Course Course Hospital Course: Patient does have a history of vestibular migraines but feels that this may be a stroke. She describes dizziness without vertigo and a recent fall 3 weeks ago now with increasing right-sided head pain. She has no focal neurological deficits but states to me that she cannot remember anything and that she awoke like this this morning. Her last known well time was actually last evening. Greater than 12 hours ago. She did awake at 0400 hours but could not tell me that she did not have symptoms at that time. Patient will undergo CT/CTA of brain and neck angio. She will receive Benadryl 12.5 mg IV as well as 1 L of normal saline. She had taken Ativan and Tylenol earlier today. Will continue to monitor. Reevaluation(s) Reevaluation #1: After return from CT patient is noted to have NIH SS 0. EOM is full and pupils equal round reactive. Visual dutta fully intact. Eyebrow raise smile symmetrical. Romberg is negative. Finger to nose bilaterally within normal limits. For an X lower extremity strength within normal limits. Patient is able to stand on tiptoes stand on heels. She is able to stand with her eyes closed. Although after a time she does sway a bit but she is able to recover. She is able to walk without difficulty. Reevaluation #2: When patient returns from CTA she is feeling improved. I do ask her if she still has dizziness and she does not think so. She certainly denies any vertigo. She seems to be doing better. Vital Signs Vital signs: Initial Vital Signs Temperature 98.7 F 09/13/22 12:35 Temperature Source Temporal Artery Scan 09/13/22 12:35 Pulse Rate 77 09/13/22 12:35 Respiratory Rate 16 09/13/22 12:35 Blood Pressure 159/84 H 09/13/22 12:35 Blood Pressure Mean 109 09/13/22 12:35 Blood Pressure Position Sitting 09/13/22 12:35 Pulse Oximetry 98 09/13/22 12:35 Oxygen Delivery Method 09/13/22 12:35 Vital Signs Temperature 98.7 F 09/13/22 12:35 Pulse Rate 77 09/13/22 12:35 Respiratory Rate 16 09/13/22 12:35 Blood Pressure 159/84 H 09/13/22 12:35 Pulse Oximetry 98 09/13/22 12:35 Oxygen Delivery Method 09/13/22 12:35 Temperature 98.7 F 09/13/22 12:35 Pulse Rate 71 09/13/22 15:34 Respiratory Rate 16 09/13/22 13:46 Blood Pressure 135/102 H 09/13/22 15:02 Pulse Oximetry 95 09/13/22 15:34 Oxygen Delivery Method 09/13/22 12:36 Medical Decision Making MDM Narrative Medical decision making narrative: 1. History of vestibular migraines-patient notes similar symptoms in the past and she has long been diagnosed with this. She did take Ativan earlier today. She received Benadryl 12.5 mg which seemed to have resolved all of her symptoms. I think that it would be antoine to perhaps look to other medications besides benzodiazepine in a 77-year-old woman for control of this issue. I do think there is significant psychological and anxiety overlay in regards to this occurrence. 2. Headache-this has now resolved. Patient notes head injury 3 weeks ago and head CT is reassuring with no evidence of subdural hematoma or other abnormality. Patient is blaming Aricept for this occurrence. Patient will hold on Aricept to see if symptoms orquidea although at this time she is much improved. 3. Anxiety depression-I was able to sit down and speak with Marilyn about her diagnosis of dementia and Alzheimer's. She is very upset in regards to this. She does tell me about 1 incident where she was driving and had taken a turn on a road that she should know in she did recognize it. That is only happened 1 time. She is very tearful and recognizes that what happened today may have been panic attack or anxiety secondary to these recent stressors of a new diagnosis. She had just learned in July that she has been diagnosed with short-term memory loss and likely Alzheimer's. We did talk about her pursuing talking to a psychiatrist or possible therapist so that she can may be learned some coping strategies. She has a wonderful and loving that is here today and she is very thankful for that but states that she just feels very frustrated sometimes. She has improved during our stay here. 4. Disposition-patient is discharged home. Laboratory values reassuring at this time. With no evidence of elevated white count urinary tract infection or underlying acute coronary event. Patient will follow-up with her primary MD at the [facility]. She will also follow up with her neurologist. She return to the emergency room for any worsening symptoms. Medical Records Medical records reviewed: Yes I reviewed the patient's medical records Lab Data Lab results reviewed: Yes I reviewed the patient's lab results Labs: Lab Results 09/13/22 09/13/22 09/13/22 Range/Units 12:27 12:27 12:27 WBC 6.88 (4.50-11.00) K/uL RBC 4.49 (4.00-5.20) m/uL Hgb 14.2 (12.0-16.0) gm/dL Hct 42.5 (33.0-51.0) % MCV 95 (80-100) fL MCH 32 (26-34) pg MCHC 33 (32-36) gm/dL RDW Coeff of Akhil 12.0 (11.5-15.5) % Plt Count 320 (140-440) K/uL Neut % (Auto) 55.2 (42.0-72.0) % Lymph % (Auto) 38.4 (20-44) % [place] % (Auto) 6.0 (0.0-11.0) % Eos % (Auto) 0.1 (0.0-7.0) % Baso % (Auto) 0.3 (0.0-3.0) % Neut # (Auto) 3.80 (1.7-7.0) K/uL Lymph # (Auto) 2.64 (0.90-2.90) K/uL [place] # (Auto) 0.40 (0.00-0.90) K/UL Eos # (Auto) 0.01 (0.00-0.50) K/uL Baso # (Auto) 0.02 (0.00-0.30) K/uL Sodium 140 (135-149) mmol/L Potassium 3.8 (3.6-5.1) mmol/L Chloride 105 (96-114) mmol/L Carbon Dioxide 29 (20-32) mmol/L BUN 13 (7-30) mg/dL Creatinine 0.5 (0.5-1.5) mg/dL Estimated GFR 97 ml/min Glucose 111 (60-115) mg/dL Calcium 9.6 (8.4-10.6) mg/dL Total Bilirubin 0.8 (0.1-1.5) mg/dL AST 40 H (12-35) U/L ALT 34 (4-35) U/L Alkaline Phosphatase 92 (40-150) U/L Total Protein 7.5 (6.0-8.3) g/dL Albumin 4.6 (3.3-5.0) g/dL Urine Color (Yellow) Urine Appearance (Clear) Urine pH (5.0-8.5) Ur Specific [place] (1.000-1.030) Urine Protein (Negative) Urine Glucose (UA) (Negative) Urine Ketones (Negative) Urine Blood (Negative) Urine Nitrite (Negative) Urine Bilirubin (Negative) Urine Urobilinogen (0.2-1.0) Ur Leukocyte Esterase (Negative) Urine RBC (0-2) Urine WBC (0-5) Ur Squamous Epith Cells (None-Few) Urine Bacteria (None) POC Troponin I 0.01 (0.01-0.04) ng/ml 09/13/22 09/13/22 Range/Units 13:50 15:18 WBC (4.50-11.00) K/uL RBC (4.00-5.20) m/uL Hgb (12.0-16.0) gm/dL Hct (33.0-51.0) % MCV (80-100) fL MCH (26-34) pg MCHC (32-36) gm/dL RDW Coeff of Akhil (11.5-15.5) % Plt Count (140-440) K/uL Neut % (Auto) (42.0-72.0) % Lymph % (Auto) (20-44) % [place] % (Auto) (0.0-11.0) % Eos % (Auto) (0.0-7.0) % Baso % (Auto) (0.0-3.0) % Neut # (Auto) (1.7-7.0) K/uL Lymph # (Auto) (0.90-2.90) K/uL [place] # (Auto) (0.00-0.90) K/UL Eos # (Auto) (0.00-0.50) K/uL Baso # (Auto) (0.00-0.30) K/uL Sodium (135-149) mmol/L Potassium (3.6-5.1) mmol/L Chloride (96-114) mmol/L Carbon Dioxide (20-32) mmol/L BUN (7-30) mg/dL Creatinine (0.5-1.5) mg/dL Estimated GFR ml/min Glucose (60-115) mg/dL Calcium (8.4-10.6) mg/dL Total Bilirubin (0.1-1.5) mg/dL AST (12-35) U/L ALT (4-35) U/L Alkaline Phosphatase (40-150) U/L Total Protein (6.0-8.3) g/dL Albumin (3.3-5.0) g/dL Urine Color Yellow (Yellow) Urine Appearance Clear (Clear) Urine pH 6.5 (5.0-8.5) Ur Specific [place] 1.025 (1.000-1.030) Urine Protein Negative (Negative) Urine Glucose (UA) Negative (Negative) Urine Ketones Trace A (Negative) Urine Blood Negative (Negative) Urine Nitrite Negative (Negative) Urine Bilirubin Negative (Negative) Urine Urobilinogen 0.2 (0.2-1.0) Ur Leukocyte Esterase Negative (Negative) Urine RBC 0-2 (0-2) Urine WBC 0-2 (0-5) Ur Squamous Epith Cells None (None-Few) Urine Bacteria None (None) POC Troponin I 0.01 (0.01-0.04) ng/ml Imaging Data CT/CTA head neck: My impression: No evidence of intracranial abnormality acute such as subdural hematoma or bleed. Radiologist's impression: There is normal opacification of the intracranial vasculature. There is no large vessel occlusion. No aneurysm is identified. IMPRESSION: Unremarkable head CTA. Brain parenchyma: The daily-white differentiation is normal.? No sign of mass, hemorrhage, or midline shift.? Skull base and calvarium: The visualized paranasal sinuses and mastoid air cells demonstrate no acute or significant findings.? The visualized orbits are grossly unremarkable.? No skull fractures.? IMPRESSION: Unremarkable noncontrast head CT. No intracranial bleed or mass effect. ECG Data Attestation: I personally reviewed and interpreted this ECG as follows: Interpretation: EKG by my read shows sinus rhythm at a rate of 69. I do not note any acute ST or T-wave changes. Discharge Plan Discharge Clinical Impression: Dizziness, Vestibular migraine, Anxiety and depression Patient Disposition: Home w/ Parent or Adult Condition: Improved Additional Instructions: As we discussed will have you hold off on your Aricept until next Saturday. Recommend follow-up with your primary MD as well as Neurology. We may need to have you see Psychiatry or a therapist to gain some coping mechanisms with your diagnosis. Please return to the emergency room if needed. Today I did not find any evidence of a heart attack, cardiac arrhythmia, electrolyte abnormality. Additionally, there was no evidence of a stroke. Prescriptions: No Action donepezil 5 mg tablet Label Comments: TAKE ONE TABLET BY MOUTH AT BEDTIME lorazepam 0.5 mg tablet atorvastatin 40 mg tablet famotidine 20 mg tablet rosuvastatin 10 mg tablet Follow Up/Referrals: Shirin Cutler MD [Primary Care Provider] - [facility]
--- NOTE | 2022-09-13 12:46 | CRLHL7_ITS ---
For Patients: As a result of the Century Cures Act, medical imaging exams and procedure reports are released immediately into your electronic medical record. You may view this report before your referring provider. If you have questions, please contact your health care provider. INDICATION: Dizziness. TECHNIQUE: CTA neck with contrast bolus tracking and 3D MIP reconstruction. FINDINGS: There is no significant carotid or vertebral artery stenosis or dissection. The soft tissues of the neck are within normal limits. The cervical spine is in normal alignment. IMPRESSION: Unremarkable neck CTA. Please note that all CT scans at this facility use dose modulation, iterative reconstruction, and/or weight-based dosing when appropriate to reduce radiation dose to as low as reasonably achievable. Dictated by Sergio Goodrich MD @ 09/13/2022 3:10:23 PM (Electronically Signed)
--- NOTE | 2022-09-13 12:46 | CRLHL7_ITS ---
For Patients: As a result of the Century Cures Act, medical imaging exams and procedure reports are released immediately into your electronic medical record. You may view this report before your referring provider. If you have questions, please contact your health care provider. INDICATION: Dizziness. TECHNIQUE: CTA head with contrast bolus tracking and 3D MIP reconstruction. FINDINGS: There is normal opacification of the intracranial vasculature. There is no large vessel occlusion. No aneurysm is identified. IMPRESSION: Unremarkable head CTA. Please note that all CT scans at this facility use dose modulation, iterative reconstruction, and/or weight-based dosing when appropriate to reduce radiation dose to as low as reasonably achievable. Dictated by Sergio Goodrich MD @ 09/13/2022 3:10:00 PM (Electronically Signed)
[2022-09-13 12:56] LABS: Troponin, Point-of-Care* 0.01 ng/ml (0.01-0.04)
[2022-09-13] MEDS: diphenhydrAMINE 50 MG/ML inj 12.5 MG IVP (13:03)
[2022-09-13] MEDS: 0.9 % SODIUM CHLORIDE 1000 ml 1,000 ML IV (13:04)
[2022-09-13 13:06] LABS: Basophils Absolute Auto 0.02 K/uL (0.00-0.30); Basophils Percent Auto 0.3 % (0.0-3.0); Eosinophils Absolute Auto 0.01 K/uL (0.00-0.50); Eosinophils Percent Auto 0.1 % (0.0-7.0); Hematocrit 42.5 % (33.0-51.0); Hemoglobin* 14.2 gm/dL (12.0-16.0); Lymphocytes Absolute Auto 2.64 K/uL (0.90-2.90); Lymphocytes Percent Auto 38.4 % (20-44); Mean Corpuscular HGB Conc 33 gm/dL (32-36); Mean Corpuscular Hemoglobin 32 pg (26-34); Mean Corpuscular Volume 95 fL (80-100); Neutrophils Percent Auto 55.2 % (42.0-72.0); Platelet Count* 320 K/uL (140-440); Red Blood Count 4.49 m/uL (4.00-5.20); White Blood Count* 6.88 K/uL (4.50-11.00)
[2022-09-13 13:10] LABS: Slide Review Reflex No
[2022-09-13 13:17] LABS: Albumin* 4.6 g/dL (3.3-5.0); Chloride* 105 mmol/L (96-114); Potassium* 3.8 mmol/L (3.6-5.1); Sodium* 140 mmol/L (135-149)
[2022-09-13 13:20] LABS: Alanine Aminotransferase* 34 U/L (4-35); Alkaline Phosphatase* 92 U/L (40-150); Aspartate Amino Transferase* 40 U/L (12-35); Bilirubin Total* 0.8 mg/dL (0.1-1.5); Blood Urea Nitrogen* 13 mg/dL (7-30); Carbon Dioxide* 29 mmol/L (20-32); Creatinine* 0.5 mg/dL (0.5-1.5); Estimated Glomerular Filt Rate 97 ml/min; Glucose* 111 mg/dL (60-115); Total Protein* 7.5 g/dL (6.0-8.3)
[2022-09-13 13:21] LABS: Calcium* 9.6 mg/dL (8.4-10.6)
[2022-09-13 13:56] LABS: Appearance Urine Clear (Clear); Bilirubin Urine Negative (Negative); Blood Urine Negative (Negative); Color Urine Yellow (Yellow); Glucose Urine Negative (Negative); Ketones Urine Trace (Negative); Leukocyte Esterase Urine Negative (Negative); Nitrite Urine Negative (Negative); Protein Urine Negative (Negative); Specific Gravity Urine 1.025 (1.000-1.030); Urobilinogen Urine 0.2 (0.2-1.0); pH Urine 6.5 (5.0-8.5)
[2022-09-13 14:22] LABS: RBC Urine 0-2 (0-2); WBC Urine 0-2 (0-5)
[2022-09-13 15:38] LABS: Troponin, Point-of-Care* 0.01 ng/ml (0.01-0.04)
== END 2022-09-13 17:22 | disposition home or self-care (01) ==
PROVIDERS: Emergency Provider Family Medicine; PCP Family Medicine
DX: R51.9 Headache, unspecified (principal); F41.9 Anxiety disorder, unspecified; F32.A Depression, unspecified
CPT/HCPCS: 36415; 70450; 70496; 70498; 80053; 81001; 84484; 85025; 93005; 94761; 96374; 99285; J1200; J7030; Q9967

== ENCOUNTER 2022-10-29 07:01 | Outpatient (CLI) | payer MEDICARE, OTHER, SELFPAY ==
--- NOTE | 2022-10-29 08:40 | P.ANES_ITS ---
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
--- NOTE | 2022-10-29 08:46 | W.ANESCHARGE ---
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
== END 2022-10-29 07:02 | disposition home or self-care (01) ==
LOC: OP CLINIC 07:03
PROVIDERS: PCP Family Medicine; Visit Provider Internal Medicine Gastroenterology
DX: Z12.11 Encounter for screening for malignant neoplasm of colon (principal); K63.5 Polyp of colon; K57.30 Diverticulosis of large intestine without perforation or abscess without bleeding; Z86.010 Personal history of colon polyps
CPT/HCPCS: 00811; 00812; 45380; 45385; 88305; 99100; J2704

== ENCOUNTER 2023-06-13 05:40 | Outpatient (CLI) | payer MEDICARE, OTHER, SELFPAY | END 2023-06-13 05:41 | disposition home or self-care (01) | LOC: AMB 06-15 17:23 | PROVIDERS: PCP Family Medicine; Visit Provider Family Medicine | DX: R42 Dizziness and giddiness (principal); R53.83 Other fatigue | CPT/HCPCS: A0425; A0427 ==

== ENCOUNTER 2023-06-13 06:19 | Emergency (ER) | payer MEDICARE, OTHER, SELFPAY ==
[2023-06-13 06:24] VITALS: BP 126/66; PULSE 72; RESP 16; TEMP 36.6; O2SAT 97
[2023-06-13 07:11] LABS: Basophils Absolute Auto 0.03 K/uL (0.00-0.30); Basophils Percent Auto 0.4 % (0.0-3.0); Hematocrit 40.6 % (33.0-51.0); Hemoglobin* 13.3 gm/dL (12.0-16.0); Immature Granulocytes Abs Auto 0.01 K/uL (0.00-0.30); Immature Granulocytes Pct Auto 0.1 %; Lymphocytes Percent Auto 10.4 % (20-44); Mean Corpuscular HGB Conc 33 gm/dL (32-36); Mean Corpuscular Hemoglobin 32 pg (26-34); Mean Corpuscular Volume 96 fL (80-100); Monocytes Percent Auto 7.9 % (0.0-11.0); Neutrophils Percent Auto 81.2 % (42.0-72.0); Platelet Count* 214 K/uL (140-440); RDW Coefficient of Variation % 12.4 % (11.5-15.5); Red Blood Count 4.21 m/uL (4.00-5.20); White Blood Count* 6.95 K/uL (4.50-11.00)
--- NOTE | 2023-06-13 07:11 | ED_ITS ---
HPI - General Adult General Chief complaint: Weakness Stated complaint: weakness Time Seen by Provider: 06/13/23 06:32 Source: patient, family and EMS Mode of arrival: ambulatory History of Present Illness HPI narrative: 77-year-old female presents the emergency department with feeling of generalized weakness this morning at approximately 5:00 a.m., 1 hour prior to arrival. She says that she received her influenza and COVID vaccines yesterday morning. Her arms were achy and she felt mildly unwell when she went to bed but she woke this morning with a headache feeling nauseated, sweaty and panicky. She went to the bathroom where she began to feel more weak. There was no loss of consciousness, chest pain, palpitations. She has chronic ongoing dizziness and says that that is not new for her. She says that when she started to feel panicky she felt short of breath but is not having any productive cough or fever. Her checked on her and she said she must be dehydrated despite the fact that she has been eating and drinking normally. She insisted that he call 911. He attempted to redirect her on this and she insisted that they call 911. EMS started an IV, administered 4 mg of Zofran, 0.5 mg of lorazepam and started a 0.5 L of normal saline and she reports that her symptoms arm proving. She thinks that her symptoms must be related to the vaccines. She denies any focal neurological changes, stroke-like symptoms, vomiting, cardiac or true respiratory symptoms. No falls, trauma or injury. She does report a prior history of TIAs but does not have any acute neurological changes today. She did not try any medications prior to calling EMS but does report that there medications helped considerably. She is prone to anxiety and uses lorazepam approximately once weekly for vestibular migraines, anxiety, etc.. Past medical history is notable for anxiety, vestibular migraines, hyperlipidemia, memory impairment. Medications reviewed, listed as accurate per patient. Allergies are to codeine and fentanyl causing nausea and vomiting and Cipro causing diarrhea, all of which are in intolerance not an allergy. ROS is notable for the generalized symptoms as described above, otherwise denies times 12 systems. Related Data Home Medications Medication Instructions Recorded Confirmed atorvastatin 40 mg tablet mg 06/12/22 famotidine 20 mg tablet mg 06/12/22 rosuvastatin 10 mg tablet mg 06/12/22 donepezil 5 mg tablet mg 09/13/22 lorazepam 0.5 mg tablet mg 09/13/22 Allergies Allergy/AdvReac Type Severity Reaction Status Date / Time fentanyl AdvReac Severe Verified 09/13/22 13:49 ciprofloxacin [From Cipro] AdvReac Intermediate Diarrhea Verified 09/13/22 13:49 codeine AdvReac Intermediate nausea and Verified 09/13/22 13:49 vomiting PFSH PFS Social History Smoking Status: Never smoker Do you use any of these nicotine containing products: None Second hand tobacco smoke exposure: No How often do you have a drink containing alcohol: never How often do you have six or more drinks on one occasion: Never AUDIT-C Alcohol total score: 0 Non-prescribed substance use: denies use service: No Exam Const: Vital Signs, click to edit/add: Vital Signs - 24 hr 06/13/23 06:24 Temperature 97.8 F Pulse Rate [Left P ulse Oximeter] 72 Respiratory Rate 16 Blood Pressure [Ri ght Upper Arm] 126/66 Pulse Oximetry 97 Oxygen Delivery Me thod Room Air Documenting provider has reviewed patient's vital signs: yes Common normals: alert General appearance: well kempt Other: Anxious, does not appear acutely ill. HENMT: Common normals: normocephalic, head/scalp atraumatic and TM's normal bilaterally Head and scalp: normocephalic and atraumatic Face and sinus: normal facial exam Tympanic membrane: TM's normal bilaterally Mouth: oral and palatal mucosa normal Throat: posterior oropharynx normal Eye: Common normals: PERRL, EOMs intact bilaterally and conjunctivae normal General eye: normal appearance of both eyes Conjunctiva: conjunctiva(e) normal Pupil: PERRL Neck & C-Spine: Common normals: full ROM and no lymphadenopathy Resp: Common normals: normal respiratory effort, no use of accessory muscles and clear to auscultation bilaterally Effort & inspection: able to speak in complete sentences Auscultation: clear to auscultation bilaterally Cardio: Common normals: regular rate, regular rhythm, S1 normal heart sound, S2 normal heart sound and no murmurs Rate: regular rate Rhythm: regular rhythm Heart sounds: S1 normal and S2 normal GI: Common normals: Normal to inspection, nondistended, normoactive bowel sounds present, soft to palpation, non-tender, no hepatosplenomegaly and no masses Palpation: soft and no hepatosplenomegaly Extremity: Common normals: normal to inspection, normal capillary refill and no pedal edema Neuro: Faustino Coma Scale: document GCS findings Faustino coma scale eye opening: Spontaneous (4) [place] coma scale verbal response: Orientated (5) [place] coma scale motor response: Obey commands (6) [place] coma scale total score: 15 Sensorium/orientation: alert Speech: speech normal Motor exam: strength 5/5 throughout and no tremor noted Psych: Appearance: well kempt Activity/motor behavior: appropriate eye contact Mood and affect: anxious Insight: fair Judgement: fair Skin: Common normals: no rashes or lesions noted General skin exam: no rashes or lesions noted Course Course ED Course: General malaise without signs of sepsis, fevers, neurological changes in the setting of recent vaccination. Suspect appropriate immune response. Underlying anxiety making interpretation more difficult. Marked improvement after lorazepam and Zofran. Recommended that she finish the 0.5 L of normal saline that was started by EMS and we do some basic labs to double check on her heart. I have reassured her that she is wildly unlikely to be dehydrated as she has been eating and drinking normally. I did offer her Tylenol 1000 mg p.o. x1 for the mild headache and malaise while we await basic labs. Reevaluation(s) Time of Reevaluation #1: 08:06 Reevaluation #1: Reviewed findings with patient, feeling better. Alarm symptoms reviewed that would warrant ED presentation. Suspect vaccine side effect. All labs are reassuring. Patient will be discharged home with her . No further questions. Vital Signs Vital signs: Initial Vital Signs Temperature 97.8 F 06/13/23 06:24 Temperature Source Temporal Artery Scan 06/13/23 06:24 Pulse Rate 72 06/13/23 06:24 Pulse Rhythm Regular 06/13/23 06:24 Respiratory Rate 16 06/13/23 06:24 Blood Pressure 126/66 06/13/23 06:24 Blood Pressure Mean 86 06/13/23 06:24 Blood Pressure Position Semi-Fowlers 06/13/23 06:24 Pulse Oximetry 97 06/13/23 06:24 Oxygen Delivery Method Room Air 06/13/23 06:24 Vital Signs Temperature 97.8 F 06/13/23 06:24 Pulse Rate 72 06/13/23 06:24 Respiratory Rate 16 06/13/23 06:24 Blood Pressure 126/66 06/13/23 06:24 Pulse Oximetry 97 06/13/23 06:24 Oxygen Delivery Method Room Air 06/13/23 06:24 Temperature 97.8 F 06/13/23 06:24 Pulse Rate 72 06/13/23 06:24 Respiratory Rate 16 06/13/23 06:24 Blood Pressure 126/66 06/13/23 06:24 Pulse Oximetry 97 06/13/23 06:24 Oxygen Delivery Method Room Air 06/13/23 06:24 Medical Decision Making Lab Data Lab results reviewed: Yes I reviewed the patient's lab results Lab results narrative: All normal, as expected Labs: Lab Results 06/13/23 06/13/23 Range/Units 06:47 07:02 WBC 6.95 (4.50-11.00) K/uL RBC 4.21 (4.00-5.20) m/uL Hgb 13.3 (12.0-16.0) gm/dL Hct 40.6 (33.0-51.0) % MCV 96 (80-100) fL MCH 32 (26-34) pg MCHC 33 (32-36) gm/dL RDW Coeff of Akhil 12.4 (11.5-15.5) % Plt Count 214 (140-440) K/uL Neut % (Auto) 81.2 H (42.0-72.0) % Lymph % (Auto) 10.4 L (20-44) % [place] % (Auto) 7.9 (0.0-11.0) % Eos % (Auto) 0.0 (0.0-7.0) % Baso % (Auto) 0.4 (0.0-3.0) % Neut # (Auto) 5.60 (1.7-7.0) K/uL Lymph # (Auto) 0.70 L (0.90-2.90) K/uL [place] # (Auto) 0.50 (0.00-0.90) K/UL Eos # (Auto) 0.00 (0.00-0.50) K/uL Baso # (Auto) 0.03 (0.00-0.30) K/uL Abs Immat Gran (auto) 0.01 (0.00-0.30) K/uL Imm/Tot Granulo (auto) 0.1 % Sodium 137 (135-149) mmol/L Potassium 3.5 L (3.6-5.1) mmol/L Chloride 98 (96-114) mmol/L Carbon Dioxide 26 (20-32) mmol/L Anion Gap 13 (7-15) mEq/L BUN 13 (7-30) mg/dL Creatinine 0.5 (0.5-1.5) mg/dL Estimated GFR 97 ml/min Glucose 96 (60-115) mg/dL Lactate 1.5 (0.5-1.9) mmol/L Calcium 8.8 (8.4-10.6) mg/dL POC Troponin I 0.01 (0.01-0.04) ng/ml Discharge Plan Discharge Clinical Impression: Influenza vaccine side effect Patient Disposition: Home w/ Parent or Adult Condition: Improved Additional Instructions: As we discussed, there are no signs of dehydration, heart problems, infection or other severe illness today. I agree with you that your symptoms seem related to the vaccines you received yesterday. This is not allergic reaction but a nice potent responsive of your immune system. Your likely to have mild headache, body aches, dizziness, fatigue for the next 24-48 hours. It is okay to use Tylenol and ibuprofen as we discussed. Rest for today. Symptoms should be quite a bit better within a couple of days. If not improving and especially the start running high fevers, have neurological changes or other abnormal findings, please come back to the emergency department. Activity Level: Light activity Discharge Diet: Regular Prescriptions: No Action donepezil 5 mg tablet Patient Comments: TAKE ONE TABLET BY MOUTH AT BEDTIME lorazepam 0.5 mg tablet atorvastatin 40 mg tablet famotidine 20 mg tablet rosuvastatin 10 mg tablet Follow Up/Referrals: Shirin Cutler MD [Primary Care Provider] - Stand Alone Forms: [facility] Info Instructions
[2023-06-13 07:12] LABS: Lactate* 1.5 mmol/L (0.5-1.9)
[2023-06-13 07:17] LABS: Troponin, Point-of-Care* 0.01 ng/ml (0.01-0.04)
[2023-06-13 07:24] LABS: Slide Review Reflex No
[2023-06-13] MEDS: ACETAMINOPHEN 325 MG TABLET 650 MG PO (07:39)
[2023-06-13 07:42] LABS: Chloride* 98 mmol/L (96-114); Sodium* 137 mmol/L (135-149)
[2023-06-13 07:43] LABS: Potassium* 3.5 mmol/L (3.6-5.1)
[2023-06-13 07:45] LABS: Creatinine* 0.5 mg/dL (0.5-1.5); Estimated Glomerular Filt Rate 97 ml/min
[2023-06-13 07:46] LABS: Anion Gap 13 mEq/L (7-15); Blood Urea Nitrogen* 13 mg/dL (7-30); Calcium* 8.8 mg/dL (8.4-10.6); Carbon Dioxide* 26 mmol/L (20-32); Glucose* 96 mg/dL (60-115)
[2023-06-13 07:56] LABS: PCR FLU A Negative PCR FLU A (Negative); PCR FLU B Negative PCR FLU B (Negative); PCR RSV Negative PCR RSV (Negative)
[2023-06-13 08:07] LABS: SARS PCR* Negative SARS-CoV-2 (Negative)
== END 2023-06-13 08:49 | disposition home or self-care (01) ==
PROVIDERS: Emergency Provider Family Medicine; PCP Family Medicine
DX: R53.1 Weakness (principal); T50.Z95A Adverse effect of other vaccines and biological substances, initial encounter
CPT/HCPCS: 36415; 80048; 81003; 83605; 84484; 85025; 87631; 99283; 99284; A9270

== ENCOUNTER 2024-05-27 09:56 | Emergency (ER) | payer MEDICARE, OTHER, SELFPAY ==
[2024-05-27 10:00] VITALS: BP 130/77; PULSE 68; RESP 16; TEMP 36.2; O2SAT 100; BMI 25.8
--- NOTE | 2024-05-27 10:20 | ED_ITS ---
HPI - General Adult General Chief complaint: Headache/Migraine Stated complaint: c/o covid vaccine reaction, dizzy, nauseous Time Seen by Provider: 05/27/24 10:14 History of Present Illness HPI narrative: Patient is a pleasant 78 year white female who got her COVID shot yesterday, Moderna, and has felt tremulous, nauseated, occasional chills. This is since yesterday when she got her shot. Prior to that she was feeling fine. Interestingly she had a similar reaction in May of 2023 from her chart review after she got her COVID and influenza vaccine last year. This year she just got the COVID and had a similar reaction. She has no cough, no breathing difficulty, no chest pain no lower extremity swelling or edema. She has had no skin rashes. No nuchal rigidity. She felt well prior to her shot. Related Data Home Medications ?Medication ?Instructions ?Recorded ?Confirmed famotidine 20 mg tablet 20 mg PO HS 06/12/22 05/27/24 rosuvastatin 10 mg tablet 10 mg PO HS 06/12/22 05/27/24 lorazepam 0.5 mg tablet 0.5 mg PO ONCE PRN 09/13/22 05/27/24 aspirin 81 mg tablet,delayed 81 mg PO DAILY 05/27/24 05/27/24 release (Adult Aspirin Regimen) cholecalciferol (vitamin D3) 25 25 mcg PO DAILY 05/27/24 05/27/24 mcg (1,000 unit) chewable tablet fluticasone propionate 50 1 spray intranasal DAILY PRN 05/27/24 05/27/24 mcg/actuation nasal spray,suspension (24 Hour Allergy Relief) lutein 20 mg capsule 20 mg PO DAILY 05/27/24 05/27/24 meclizine 12.5 mg tablet 12.5 - 25 mg PO ONCE PRN 05/27/24 05/27/24 multivitamin 1 tab PO DAILY 05/27/24 05/27/24 Allergies Allergy/AdvReac Type Severity Reaction Status Date / Time fentanyl AdvReac Severe Verified 05/27/24 10:00 ciprofloxacin [From Cipro] AdvReac Intermediate Diarrhea Verified 05/27/24 10:00 codeine AdvReac Intermediate nausea and Verified 05/27/24 10:00 vomiting Review of Systems Status of ROS: Reports: 6 or more systems reviewed and unremarkable except as noted in History and below PFSH PFS Social History Smoking Status: Never smoker Do you use any of these nicotine containing products: None Second hand tobacco smoke exposure: No How often do you have a drink containing alcohol: never How often do you have six or more drinks on one occasion: Never AUDIT-C Alcohol total score: 0 Non-prescribed substance use: denies use service: No Exam Narrative: Exam Narrative: Objective: Patient is afebrile, O2 sat P is 100% on room air Patient is alert oriented x3 She is able to eat and drink water she reports Showed HEENT shows no facial asymmetry mouth is clear throat clear Neck is supple Chest is clear no rales or wheezing Heart rate and rhythm regular with occasional ectopic beat 2/6 systolic murmur Abdomen benign soft nontender Extremities are good air him a neurologic nonfocal. No lower extremity swelling. No skin rashes Skin warm and dry. Const: Vital Signs, click to edit/add: Vital Signs - 24 hr 05/27/24 10:00 05/27/24 11:17 Temperature 97.1 F L Pulse Rate [Pulse Oximeter] 68 69 Respiratory Rate 16 18 Blood Pressure [Ri t Upper Arm] 130/77 115/62 Pulse Oximetry 100 96 Oxygen Delivery Me thod Room Air Room Air Course Vital Signs Vital signs: Initial Vital Signs Temperature 97.1 F L 05/27/24 10:00 Temperature Source Temporal Artery Scan 05/27/24 10:00 Pulse Rate 68 05/27/24 10:00 Respiratory Rate 16 05/27/24 10:00 Blood Pressure 130/77 05/27/24 10:00 Blood Pressure Mean 94 05/27/24 10:00 Blood Pressure Position Sitting 05/27/24 10:00 Pulse Oximetry 100 05/27/24 10:00 Oxygen Delivery Method Room Air 05/27/24 10:00 Vital Signs Temperature 97.1 F L 05/27/24 10:00 Pulse Rate 68 05/27/24 10:00 Respiratory Rate 16 05/27/24 10:00 Blood Pressure 130/77 05/27/24 10:00 Pulse Oximetry 100 05/27/24 10:00 Oxygen Delivery Method Room Air 05/27/24 10:00 Temperature 97.1 F L 05/27/24 10:00 Pulse Rate 69 05/27/24 11:17 Respiratory Rate 18 05/27/24 11:17 Blood Pressure 115/62 05/27/24 11:17 Pulse Oximetry 96 05/27/24 11:17 Oxygen Delivery Method Room Air 05/27/24 11:17 Medications Administered Medications: Discontinued Medications Generic Name Dose Route Start Last Admin Trade Name Ian PRN Reason Stop Dose Admin Sodium Chloride 1,000 mls @ 6,000 mls/hr 05/27/24 10:30 05/27/24 11:15 0.9 % Sodium Chloride 1000 Ml IV 05/27/24 10:39 Infused .Q10M BEE Infusion Lorazepam 1 mg 05/27/24 10:19 05/27/24 10:36 Lorazepam 2 Mg/Ml Inj IVP 05/27/24 10:20 1 mg ONCE ONE Administration Ondansetron HCl 4 mg 05/27/24 10:19 05/27/24 10:37 Ondansetron 2 Mg/Ml Inj IVP 05/27/24 10:20 4 mg ONCE ONE Administration Medical Decision Making MDM Narrative Medical decision making narrative: [age] year white female with likely an untoward reaction to the COVID vaccine again. This is so consistent with her prior presentation that it seems identical. She should discuss with her regular doctor whether further COVID vaccines would be appropriate for her. She seemed to do well with Ativan and Zofran last visit will do the same as well as IV fluid. Will check electrolytes and labs. Disposition pending findings above. And clinical response. Addendum 11:00 a.m.: The patient feels better. Her labs look reassuring. I think she can go home at the completion of her fluid rest light activity, Tylenol as needed, may have some residual feeling for the next couple of days but showed passed fairly quickly. She has problems or concerns should return to the ED. Lab Data Labs: Lab Results 05/27/24 Range/Units 10:25 WBC 7.02 (4.50-11.00) K/uL RBC 4.27 (4.00-5.20) m/uL Hgb 13.4 (12.0-16.0) gm/dL Hct 40.3 (33.0-51.0) % MCV 94 (80-100) fL MCH 31 (26-34) pg MCHC 33 (32-36) gm/dL RDW Coeff of Akhil 12.5 (11.5-15.5) % Plt Count 245 (140-440) K/uL Neut % (Auto) 68.5 (42.0-72.0) % Lymph % (Auto) 20.7 (20-44) % [place] % (Auto) 10.1 (0.0-11.0) % Eos % (Auto) 0.0 (0.0-7.0) % Baso % (Auto) 0.6 (0.0-3.0) % Neut # (Auto) 4.81 (1.7-7.0) K/uL Lymph # (Auto) 1.45 (0.90-2.90) K/uL [place] # (Auto) 0.70 (0.00-0.90) K/UL Eos # (Auto) 0.00 (0.00-0.50) K/uL Baso # (Auto) 0.04 (0.00-0.30) K/uL Abs Immat Gran (auto) 0.01 (0.00-0.30) K/uL Imm/Tot Granulo (auto) 0.1 % Sodium 132 L (135-149) mmol/L Potassium 4.0 (3.6-5.1) mmol/L Chloride 98 (96-114) mmol/L Carbon Dioxide 29 (20-32) mmol/L Anion Gap 5 L (7-15) mEq/L BUN 15 (7-30) mg/dL Creatinine 0.6 (0.5-1.5) mg/dL Estimated Creat Clear 44.10 Estimated GFR 92 ml/min Glucose 108 (60-115) mg/dL Calcium 9.4 (8.4-10.6) mg/dL C-Reactive Protein 1.7 H (0.5-1.0) mg/dL Discharge Plan Discharge Clinical Impression: Medication reaction Patient Disposition: Home w/ Parent or Adult Condition: Improved Additional Instructions: Rest, light activity, Tylenol as needed, update regular doctor in the next 2-3 days, return to ED sooner worsening or concerns. Activity Level: Light activity Discharge Diet: Regular Prescriptions: No Action lorazepam 0.5 mg tablet 0.5 mg PO ONCE PRN aspirin [Adult Aspirin Regimen] 81 mg tablet,delayed release (DR/EC) 81 mg PO DAILY meclizine 12.5 mg tablet 12.5 - 25 mg PO ONCE PRN Rx Instructions: vertigo fluticasone propionate [24 Hour Allergy Relief] 50 mcg/actuation spray,suspension 1 spray intranasal DAILY PRN Rx Instructions: administer into each nostril lutein 20 mg capsule 20 mg PO DAILY Rx Instructions: give with meal/snack multivitamin Tablet 1 tab PO DAILY cholecalciferol (vitamin D3) 25 mcg (1,000 unit) tablet,chewable 25 mcg PO DAILY famotidine 20 mg tablet 20 mg PO HS rosuvastatin 10 mg tablet 10 mg PO HS Follow Up/Referrals: Shirin Cutler MD [Primary Care Provider] - Stand Alone Forms: [email or web address] Info Instructions
[2024-05-27] MEDS: LORazepam 2 MG/ML inj 1 MG IVP (10:36)
[2024-05-27] MEDS: ONDANSETRON 2 MG/ML inj 4 MG IVP (10:37)
[2024-05-27] MEDS: 0.9 % SODIUM CHLORIDE 1000 ml 1,000 ML 6000 ML IV (10:37)
[2024-05-27 10:38] LABS: Basophils Absolute Auto 0.04 K/uL (0.00-0.30); Basophils Percent Auto 0.6 % (0.0-3.0); Hematocrit 40.3 % (33.0-51.0); Hemoglobin* 13.4 gm/dL (12.0-16.0); Immature Granulocytes Abs Auto 0.01 K/uL (0.00-0.30); Immature Granulocytes Pct Auto 0.1 %; Lymphocytes Absolute Auto 1.45 K/uL (0.90-2.90); Lymphocytes Percent Auto 20.7 % (20-44); Mean Corpuscular HGB Conc 33 gm/dL (32-36); Mean Corpuscular Hemoglobin 31 pg (26-34); Mean Corpuscular Volume 94 fL (80-100); Monocytes Percent Auto 10.1 % (0.0-11.0); Neutrophils Absolute Auto 4.81 K/uL (1.7-7.0); Neutrophils Percent Auto 68.5 % (42.0-72.0); Platelet Count* 245 K/uL (140-440); RDW Coefficient of Variation % 12.5 % (11.5-15.5); Red Blood Count 4.27 m/uL (4.00-5.20); White Blood Count* 7.02 K/uL (4.50-11.00)
[2024-05-27 10:41] LABS: Slide Review Reflex No
--- OUTSIDE RECORDS SUMMARY | 2024-05-27 10:46 | XMS_ITS | Clinical Summary ---
Author Organization [facility] Address [place], [place] [address] Care Team Providers Care National Secretary Name Role Phone Tamela Vogel Primary Care Provider [phone] Allergies Active Allergy Reactions Criticality Noted Date Comments Ciprofloxacin Diarrhea 03/17/2013 Codeine Vomiting 11/06/2007 Fentanyl Nausea And Vomiting High 09/02/2019 Pentazocine Behavioral Disturbances 11/07/2007 Medications Medication Sig Dispensed Refills Start Date End Date Status cholecalciferol (VITAMIN D3) 1,000 unit tablet Take 1 tablet by mouth once daily. 0 10/14/2009 Active acetaminophen (TYLENOL) 325 mg tablet Take by mouth every 4 hours if needed. Max acetaminophen dose: 4000mg in 24 hrs. 0 02/20/2017 Active lutein 20 mg capsule Take 1 capsule by mouth once daily. 0 09/08/2019 Active fluticasone (50 mcg per actuation) nasal solution (FLONASE)Indications :Non-seasonal allergic rhinitis due to pollen Inhale 1 [place] into both nostrils once daily. 48 g 5 09/22/2020 Active Additional Information Patient taking differently:1 [place] Both Nostrils DAILY,PRN, Reported on 10/30/2023 BABY ASPIRIN ORAL 06/13/2022 Active LORazepam (ATIVAN) 0.5 mg tabIndications:Anxie ty Take 1-2 Tablets (0.5-1 mg) by mouth every 6 hours if needed for Anxiety. 30 Tablet 1 05/16/2023 Active rosuvastatin (CRESTOR) 10 mg tabletIndications:Mi xed hyperlipidemia Take 1 Tablet (10 mg) by mouth at bedtime. 90 Tablet 3 01/21/2024 Active famotidine (PEPCID) 20 mg tabletIndications:Ch ronic GERD Take 1 Tablet (20 mg) by mouth once daily. 90 Tablet 3 01/21/2024 Active Active Problems Problem Noted Date Diagnosed Date Pseudopolyposis of colon wit hout complication, unspecified part of colon 01/21/2024 Hyperlipidemia 11/08/2014 Adenomatous colon polyp 10/23/2013 Overview (10/31/2022): Colonoscopy 09/2013 polyp repeat in 2 years Colonoscopy 11/2015 polyp repeat in 5 years Colonoscopy 10/2022 inflammatory polyp, repeat in 5 years, propofol Abdominal pain, generalized 11/07/2007 Diarrhea 11/07/2007 Dizziness and giddiness 11/07/2007 Immunizations Name Administration Dates Next Due AMB INFLUENZA IIV3 (AGE 65+ YRS) PF (Flu Clinic Only) 06/13/2018,06/14/2017 AMB Influenza, IIV3 (Age >=3 years)(Flu Clinic Only) 06/16/2013,06/10/2012,06/13/2011 AMB Influenza, IIV4 PF (=>6 mos Flulaval,Fluzone Fluarix)(Flu Clinic Only) 05/29/2019 Amb Influenza, Inact (High-d ose) (Flu Clinic Only) 06/19/2016,06/15/2014 Amb Influenza, Inactivated A IIV4 (Age 65+ Years) Preserv Free 06/08/2020 COVID-19 vaccine (Moderna 100mcg/0.5mL) PF, MDV 11/29/2021,06/16/2021,11/11/2020,2020 COVID-19 vaccine (Moderna 50mcg/0.5mL) 12YO+ BIVALENT PF, MDV 12/20/2022 Influenza A (H1N1), Inactiva vianney (Age >=3 Years) 06/26/2009 Influenza Virus, Unspecified 05/16/2009,07/21/20 04 Influenza, High-dose Inactivated 06/19/2016,05/26,06/15/2014 Influenza, High-dose Quadriv alent Inactivated 06/12/2023 Influenza, IIV3 (Age 6-35 mos) 06/13/2011 Influenza, IIV3 (Age >=3 years) 06/16/20 13,06/10/2012,06/12/2010,2008,06/13/2008,06/16/2007,07/21/2004 Influenza, Inactivated AIIV4 (Age 65+ Years) Preserv Free 06/06/2022,05/05/2021 Pneumococcal Poly,23-Valent (Pneumovax) 11/04/2013 Pneumococcal conj 13-Valent (Prevnar 13) 11/16/2015 Td (Age >=7 Years) 07/29/2008,05/30/1999 Td, Preservative Free (age > = 7 Years) 07/29/2008 Tdap 10/21/2018 Zoster (Shingrix-RZV, recombinant) 03/14/2022, Family History Medical History Relation Name Comments Heart Disease Father 74 heart attack Heart attack Half-Brother 1 Heart attack Half-Brother 2 Lung cancer Half-Brother 2 chemical expo sure Cancer-breast Half-Sister 1 Heart attack Half-Sister 1 Heart attack Half-Sister 2 Diabetes Mother Atrial fibrillation Sister Diabetes Sister Relation Name Status Comments Father Half-Brother 1 Other Half-Brother 2 Other Half-Sister 1 Other Half-Sister 2 Mother Sister Social History Tobacco Use Types Packs/Day Years Used Date Smoking Tobacco: Never Smokeless Tobacco: Never Tobacco Cessation:Counseling Given: Yes Alcohol Use Standard Drinks/Week Comments Yes 1 (1 standard drink = 0.6 oz pur e alcohol) 1-2 glasses or wine per week PHQ-2 Answer Date Recorded PHQ-2 TOTAL SCORE 0 01/21/2024 Social Connections Answer Date Recorded Frequency of Communication with Friends and Fami ly 0 07/16/2023 Financial Resource Strain Answer Date R ecorded Difficulty of Paying Living Expenses 3 07/16/2023 Difficulty of Paying Living Expenses Not on file 07/16/2023 Food Insecurity Answer Date Recorded Worried About Running Out of Food in the Last Ye ar 1 07/16/2023 Transportation Needs Answer Date Record ed Lack of Transportation (Medical) 1 07/16/2023 Housing Stability Answer Date Recorded Unable to Pay for Housing in the Last Year 1 07/16/2023 Sex and Gender Information Value Date Recorded Sex Assigned at Not on file Gender Identity Not on file Sexual Orientation Not on file Obstetrics History Para Term AB IAB SAB Ectopic Multiple Livin g Live Births 2 2 2 Date Outcome GA Total Labor Labor/2nd/3rd Weight Sex Type Anes PTL Layla A1 A5 Name Clin Term Term Last Filed Vital Signs Vital Sign Reading Time Taken Comments Blood Pressure 121/77 01/21/2024 12:51 PM CDT Pulse 64 01/21/2024 12:51 PM CDT Temperature 36.7 ??C (98 ??F) 06/14/2022 12:52 PM CDT Respiratory Rate 18 05/27/2022 1:12 PM CDT Oxygen Saturation 99% 01/21/2024 12:51 PM CDT Inhaled Oxygen Concentration - - Weight 74.5 kg (164 lb 3.2 oz) 01/21/2024 12:51 PM CDT Height 166.9 cm (5' 5.71) 01/21/2024 12:51 PM C DT Body Mass Index 26.74 01/21/2024 12:51 PM CDT Plan of Treatment Health Maintenance Due Date Last Done Comments RSV vaccine for adults or (1 - 1-dose 75+ series) 2021 COVID-19 vaccine series ( season) 2024 06/12/2023, 12/20/2022, 05/30/2022, Additional history exists Influenza for age 65+ 04/26/2024 06/12/2023 , 06/06/2022, 05/05/2021, Additional history exists BMI (ht and wt on same day) for age 18+ 01/20/2025 01/21/2024, 10/30/2023, 12/12/2022, Additional history exists Depression screening for age 12+ 01/20/2025 01/21/2024, 07/16/2023, 12/12/2022, Additional history exists Medicare Wellness for age 65+ 01/21/2025, 12/12/2022, 10/10/2021, Additional history exists Tetanus booster 10/21/2028 10/21/2018, 11/2007, 07/29/2008, Additional history exists Pneumococcal series for age 65+ Completed 6, 11/04/2013 Hepatitis C screening for ag e 18-79 Completed 09/04/2018 Tdap Completed 10/21/2018 Zoster (shingles) series for age 50+ Completed 03/14/2022, 11/06/2021 Fecal testing non-DNA (FIT,FOBT,iFOBT) for age 45-75 Discontinued 07/05/2022 DEXA/DXA scan for age 65+ Completed 2023, 09/04/2018, 11/11/2014 Procedures Procedure Name Priority Date/Time Associated Diagnosis Comments XR DXA BONE DENSITY 2 SITES AXIAL Routine 01/29/2024 9:11 AM CDT Menopause OCCULT BLOOD IFOBT STOOL Routine 07/05/2022 1:08 PM [employer] [employer] Screening for colon cancer ANTI HCV Routine 09/04/2018 10:28 AM [facility] [employer] [facility] Need for hepatitis C screening test from Last 3 Months or Most Recently Relevant to Health Maintenance Results * (ABNORMAL) XR DXA BONE DENSITY 2 SITES AXIAL (01/29/2024 9:11 AM CDT) Anatomical Region Laterality Modality Spine, HIPS, HIPL, HIPR Other Impressions 02/03/2024 4:00 PM CDT Osteopenia. RECOMMENDATIONS: The National Osteoporosis Foundation recommends pharmacologic treatment for patients with T-scores of -2.5 or less, patients with prior history of fragility fractures, or patients with 10-year probability of greater than 3% at hips or greater than 20% of suffering major osteoporotic fractures. Recommend continued optimization of calcium and vitamin D intake through dietary means and/or supplementation and regular exercise. Consider pharmacologic therapy for osteopenia with increased fracture risk. Follow-up bone density reading in 2 years if therapy initiated to assess therapeutic efficacy. Maggy Price PA-C [facility] 02/03/2024 Narrative 02/03/2024 4:00 PM CDT For Patients: Results are automatically released to your [employer] account once available, in compliance with federal regulations. This means that you may see your results before your provider has had a chance to review them. Please allow 2-3 business days for your provider to comment on the results. XR DXA Bone Mineral Density (BMD) EXAM LOCATION: [address] [address] PATIENT NAME: Marilyn Smith DATE OF : 1945 EXAM DATE: 01/29/2024 REQUESTING PROVIDER: Tamela Vogel PA GENDER AT : female HEIGHT: 5' 5.71 (01/21/2024) WEIGHT: ??164 lb 3.2 oz (01/21/2024) MENOPAUSAL STATUS: Postmenopausal RACE/ETHNICITY: White RISK FACTORS: White Race CURRENT MEDICATION FOR BONE LOSS: NONE INDICATION: Menopause COMPARISON DATE(S): 2018 DXA scans are compared to prior studies for a patient only when the two (or more) studies were performed on the same scanner. It is not possible to compare data generated on one scanner to data from another because there are not standards in DXA equipment. This applies even if the two scanners are made by the same rubber turner. PROCEDURE: Dual-energy x-ray absorptiometry performed with routine technique. Reporting is completed in the form of a T-score. The T-score represents the standard deviation from peak bone mass based on young healthy adult. A Z-score is used for diagnosis in premenopausal women, and for men under the age of 50. FINDINGS: RESULT LUMBAR SPINE L1 - L4 BMD: 0.953 g/cm2 T-Score: - 2.0 Z-Score: - 0.4 Change from prior: ??None RESULTS FEMUR Left femoral neck BMD: 0.773 g/cm2 T-Score: - 1.9 Z-Score: - 0.1 Change from prior in 2019: ??Decrease 5.3%. Right femoral neck BMD: 0.743 g/cm2 T-Score: - 2.1 Z-Score: - 0.3 Change from prior in 2019: ??Decrease 5.9%. Left hip BMD: 0.785 g/cm2 T-Score: - 1.8 Z-Score: - 0.1 Change from prior in 2019: ??Decrease 3.7%. Right hip BMD: 0.764 g/cm2 T-Score: - 1.9 Z-Score: - 0.3 Change from prior in 2019: ??Decrease 2.8%. WHO criteria: Normal: T-score at or above -1 SD Osteopenia: T-score between -1.1 and -2.4 SD Osteoporosis: T-score at or below -2.5 SD FRAX RISK CALCULATION (USED FOR OSTEOPENIA ONLY): 10-year probability of major osteoporotic fracture: 15.6%. 10-year probability of hip fracture: 4.6%. Tamela PARRISH DEXA * (ABNORMAL) OCCULT BLOOD IFOBT STOOL (07/05/2022 1:08 PM [facility] [employer] [facility]) STOOL BLOOD ,IFOBT Positive(A ) Negative 07/11/2022 1:36 PM [facility] [facility] Stool STOOL SPECIMEN / Unknown Non-Blood / Unknown 07/05/2022 1:08 PM [facility] [employer] [facility] 07/11/2022 1:08 PM [facility] [employer] Shirin Cutler MD LABORATORY [facility] [address] [id number], * ANTI HCV [[id number]] (09/04/2018 10:28 AM [facility] [employer]) Pathologist [facility] HEPATITIS C ANTIBODY Non-React marylou Non-React marylou 09/04/2018 6:44 PM [facility] [employer] Comment:Antibodies to HCV no t detected; does not exclude the possibility of exposure to HCV. Blood BLOOD SPECIMEN / Unknown Venipuncture / Unknown 09/04/2018 10:28 AM [facility] [employer] 09/04/2018 10:30 AM [employer] [employer] Ananth Gale MD SEND OUTS [facility] [address] [place] [address], [place] from Last 3 Months or Most Recently Relevant to Health Maintenance Advance Directives * Full Code (Latest Code Status on File) Date Activated Date Inactivated Comments 11/07/2007 1:25 AM 11/08/2007 1:01 PM Care Teams National Secretary Relationship Specialty Start Date End Date Tamela Vogel PA [address] [place] [address] PCP - General Physician Special Education Supervisor 01/21/24
[2024-05-27 10:52] LABS: Chloride* 98 mmol/L (96-114); Sodium* 132 mmol/L (135-149)
[2024-05-27 10:54] LABS: Creatinine* 0.6 mg/dL (0.5-1.5); Estimated Glomerular Filt Rate 92 ml/min
[2024-05-27 10:55] LABS: Anion Gap 5 mEq/L (7-15); Blood Urea Nitrogen* 15 mg/dL (7-30); Carbon Dioxide* 29 mmol/L (20-32); Glucose* 108 mg/dL (60-115)
[2024-05-27 10:56] LABS: Calcium* 9.4 mg/dL (8.4-10.6)
[2024-05-27 10:58] LABS: C Reactive Protein* 1.7 mg/dL (0.5-1.0)
[2024-05-27 11:17] VITALS: BP 115/62; PULSE 69; RESP 18; O2SAT 96
== END 2024-05-27 11:24 | disposition home or self-care (01) ==
LOC: ED 10:36
PROVIDERS: Emergency Provider Family Medicine; PCP Family Medicine
DX: T88.1XXA Other complications following immunization, not elsewhere classified, initial encounter (principal)
CPT/HCPCS: 36415; 80048; 85025; 86140; 96374; 96375; 99284; J2060; J2405; J7030

== ENCOUNTER 2024-08-03 04:37 | Emergency (ER) | payer MEDICARE, OTHER, SELFPAY ==
[2024-08-03 04:55] VITALS: BP 145/100; PULSE 55; RESP 20; TEMP 36.3; O2SAT 97; BMI 27.4
--- NOTE | 2024-08-03 05:11 | ED.GENADULT ---
HPI - General Adult General Chief complaint: Unspecified Complaint, Adult Stated complaint: Difficulty swallowing Time Seen by Provider: 08/03/24 05:11 History of Present Illness HPI narrative: Patient c/o feeling of something stuck in her throat. Patient took a tylenol pill at 1530 yesterday and felt it got stuck in her throat. Patient was able to eat, drink and take her night meds OK. Patient woke up at 0400 with the same feeling and is having some burping/ reflux now. Patient denies h/o strictures, trouble swallowing in the past. Patient is c/o of a thrush infection in her throat as she recewntly completed a course of PCN VK for a tooth infection 2-3 days ago. Patient speaks in full, clear sentences. 79-year-old woman presenting to the emergency department with concern of something stuck in her throat. She does admit that she is able to take meds and water okay. This seems to began yesterday afternoon about 12 hours ago when she took acetaminophen and felt like it got stuck in her throat. 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 Repeatedly. No history of swallowing difficulties or strictures. She is wondering if she maybe has a thrush infection having recently completed a penicillin course for dental infection. No trouble breathing. No chest pain. No nausea. Related Data Home Medications ?Medication ?Instructions ?Recorded ?Confirmed famotidine 20 mg tablet 20 mg PO HS 06/12/22 08/03/24 rosuvastatin 10 mg tablet 10 mg PO HS 06/12/22 08/03/24 lorazepam 0.5 mg tablet 0.5 mg PO ONCE PRN 09/13/22 08/03/24 aspirin 81 mg tablet,delayed 81 mg PO DAILY 05/27/24 08/03/24 release (Adult Aspirin Regimen) cholecalciferol (vitamin D3) 25 25 mcg PO DAILY 05/27/24 08/03/24 mcg (1,000 unit) chewable tablet fluticasone propionate 50 1 spray intranasal DAILY PRN 05/27/24 08/03/24 mcg/actuation nasal spray,suspension (24 Hour Allergy Relief) lutein 20 mg capsule 20 mg PO DAILY 05/27/24 08/03/24 meclizine 12.5 mg tablet 12.5 - 25 mg PO ONCE PRN 05/27/24 08/03/24 multivitamin 1 tab PO DAILY 05/27/24 08/03/24 escitalopram oxalate 5 mg tablet mg PO 08/03/24 Allergies Allergy/AdvReac Type Severity Reaction Status Date / Time fentanyl AdvReac Severe Verified 05/27/24 10:00 ciprofloxacin (From Cipro) AdvReac Intermediate Diarrhea Verified 05/27/24 10:00 codeine AdvReac Intermediate nausea and Verified 05/27/24 10:00 vomiting Review of Systems Status of ROS: Reports: 6 or more systems reviewed and unremarkable except as noted in History and below [facility] Social History Smoking Status: Never smoker Do you use any of these nicotine containing products: None Second hand tobacco smoke exposure: No How often do you have a drink containing alcohol: never How often do you have six or more drinks on one occasion: Never AUDIT-C Alcohol total score: 0 Non-prescribed substance use: denies use service: No Exam Narrative: Exam Narrative: Pleasant. Appears mildly anxious. Intermittently belching. Breathing easily. No stridor. Oropharynx is unremarkable without erythema or evidence of thrush per concern. Lungs are clear. Abdomen a little protuberant and soft. Nontender. Pulse is slow but regular. Const: Vital Signs, click to edit/add: Vital Signs - 24 hr 08/03/24 04:55 Temperature 97.3 F L Pulse Rate [Left P ulse Oximeter] 55 L Respiratory Rate 20 Blood Pressure [Ri ght Upper Arm] 145/100 H Pulse Oximetry 97 Oxygen Delivery Me thod Room Air Documenting provider has reviewed patient's vital signs: yes Course Vital Signs Vital signs: Initial Vital Signs Temperature 97.3 F L 08/03/24 04:55 Temperature Source Temporal Artery Scan 08/03/24 04:55 Pulse Rate 55 L 08/03/24 04:55 Pulse Rhythm Regular 08/03/24 04:55 Respiratory Rate 20 08/03/24 04:55 Blood Pressure 145/100 H 08/03/24 04:55 Blood Pressure Mean 115 H 08/03/24 04:55 Blood Pressure Position Sitting 08/03/24 04:55 Pulse Oximetry 97 08/03/24 04:55 Oxygen Delivery Method Room Air 08/03/24 04:55 Vital Signs Temperature 97.3 F L 08/03/24 04:55 Pulse Rate 55 L 08/03/24 04:55 Respiratory Rate 20 08/03/24 04:55 Blood Pressure 145/100 H 08/03/24 04:55 Pulse Oximetry 97 08/03/24 04:55 Oxygen Delivery Method Room Air 08/03/24 04:55 Temperature 97.3 F L 08/03/24 04:55 Pulse Rate 55 L 08/03/24 04:55 Respiratory Rate 20 08/03/24 04:55 Blood Pressure 145/100 H 08/03/24 04:55 Pulse Oximetry 97 08/03/24 04:55 Oxygen Delivery Method Room Air 08/03/24 04:55 Medications Administered Medications: Discontinued Medications Generic Name Dose Route Start Last Admin Trade Name Freq PRN Reason Stop Dose Admin Lidocaine/Aluminum/Magnesium/Simeth 30 ml 08/03/24 05:20 08/03/24 05:41 Gi Cocktail (Visc Lido/Antacid) 30 Ml PO 08/03/24 05:21 Not Given ONCE ONE Lidocaine/Aluminum/Magnesium/Simeth 30 ml 08/03/24 05:35 08/03/24 05:37 Mag Hydrox/Aluminum Hyd/Simeth 30 Ml Oral.Susp PO 08/03/24 05:36 30 ml ONCE ONE Administration Medical Decision Making MDM Narrative Medical decision making narrative: Spent significant time in conversation about symptoms. I would suspect globus but I can not really explain the belching. Does not appear to have significant symptoms otherwise. Does not appear to have a remaining obstruction. Tolerating water here. Did offer symptom relief with a GI cocktail as initial treatment. Anticipated her taking this then to be reassessed but ultimately this was refused. She felt she could safely return home. Discharged ambulatory from the ER. See patient discharge plan for further discussion Yes you may be experiencing some spasm in your esophagus. Perhaps the lorazepam that you have might be beneficial. Maybe some soft solid food. Return for inability to swallow liquids, marked increase in pain. Medical Records Medical records reviewed: Yes I reviewed the patient's medical records Discharge Plan Discharge Clinical Impression: Difficulty in swallowing Patient Disposition: Home w/ Parent or Adult Condition: Stable Additional Instructions: Yes you may be experiencing some spasm in your esophagus. Perhaps the lorazepam that you have might be beneficial. Maybe some soft solid food. Return for inability to swallow liquids, marked increase in pain. Prescriptions: No Action lorazepam 0.5 mg tablet 0.5 mg PO ONCE PRN aspirin [Adult Aspirin Regimen] 81 mg tablet,delayed release (DR/EC) 81 mg PO DAILY meclizine 12.5 mg tablet 12.5 - 25 mg PO ONCE PRN Rx Instructions: vertigo fluticasone propionate [24 Hour Allergy Relief] 50 mcg/actuation spray,suspension 1 spray intranasal DAILY PRN Rx Instructions: administer into each nostril lutein 20 mg capsule 20 mg PO DAILY Rx Instructions: give with meal/snack multivitamin Tablet 1 tab PO DAILY cholecalciferol (vitamin D3) 25 mcg (1,000 unit) tablet,chewable 25 mcg PO DAILY famotidine 20 mg tablet 20 mg PO HS rosuvastatin 10 mg tablet 10 mg PO HS escitalopram oxalate 5 mg tablet PO Follow Up/Referrals: Shirin Cutler MD [Primary Care Provider] - Stand Alone Forms: [facility] Info Instructions
--- OUTSIDE RECORDS SUMMARY | 2024-08-03 05:32 | XMS_ITS | Clinical Summary ---
Author Organization [facility] Address [place], [place] [address] Care Team Providers Care Software Licensing Specialist Name Role Phone Dennis Barnard MD Primary Care Provider Allergies Active Allergy Reactions Criticality Noted Date Comments Ciprofloxacin Diarrhea 03/17/2013 Codeine Vomiting 11/06/2007 Covid-19 Vac, Bv (Moderna)(Pf) Other - Describe In Comment Field 06/02/2024 Headache,nausea, chills, chest heavy, light headed. Fentanyl Nausea And Vomiting High 09/02/2019 [facility] Disturbances 11/07/2007 Medications cholecalciferol (VITAMIN D3) 1,000 unit tablet Take 1 tablet by mouth once daily. 0 10/14/19 10 Active acetaminophen (TYLENOL) 325 mg tablet Take by mouth every 4 hours if needed. Max acetaminophen dose: 4000mg in 24 hrs. 0 02/21/20 17 Active lutein 20 mg capsule Take 1 capsule by mouth once daily. 0 09/08/19 20 Active fluticasone (50 mcg per actuation) nasal solution (FLONASE)Indicatio ns:Non-seasonal allergic rhinitis due to pollen Inhale 1 [place] into both nostrils once daily. 48 g 5 09/22/19 21 Active Additional Information Patient taking differently:1 [place]ost[place] Both Nostrils DAILY,PRN, Reported on 06/02/2024 BABY ASPIRIN ORAL 06/13/20 22 Active LORazepam (ATIVAN) 0.5 mg tabIndications:Anx iety Take 1-2 Tablets (0.5-1 mg) by mouth every 6 hours if needed for Anxiety. 30 Tablet 1 09/21/20 23 Active rosuvastatin (CRESTOR) 10 mg tabletIndications: Mixed hyperlipidemia Take 1 Tablet (10 mg) by mouth at bedtime. 90 Tablet 3 01/21/20 24 Active famotidine (PEPCID) 20 mg tabletIndications: Chronic GERD Take 1 Tablet (20 mg) by mouth once daily. 90 Tablet 3 01/21/20 24 Active Active Problems Problem Noted Date Diagnosed Date Pseudopolyposis of colon wit hout complication, unspecified part of colon 01/21/2024 Hyperlipidemia 11/08/2014 Adenomatous colon polyp 10/23/2013 Overview (10/31/2022): Colonoscopy 09/2013 polyp repeat in 2 years Colonoscopy 11/2015 polyp repeat in 5 years Colonoscopy 10/2022 inflammatory polyp, repeat in 5 years, propofol Abdominal pain, generalized 11/07/2007 Diarrhea 11/07/2007 Dizziness and giddiness 11/07/2007 Mild cognitive impairment Encounters Date Type Department Care Team Description 06/23/[address] [facility] [address] [place] [address] Dennis Barnard MD Message (Mammogram and Appointment) 06/02/2024 8:00 AM CDT Office Visit [facility] [address] [place] [address] Dennis Barnard MD ER Follow up ([place], 05/27/2024, reaction to COVID-19 vaccine) 06/01/2024 Travel from Last 3 Months Immunizations Name [...] (Age 65+ Years) Preserv Free 06/06/2022,05/05/2021 Pneumococcal Conj 20-valent (Prevnar 20) 06/02/2024 Pneumococcal Poly,23-Valent (Pneumovax) 11/04/2013 Pneumococcal conj 13-Valent [...] Never Smokeless Tobacco: Never Tobacco Cessation:Counseling Given: No Alcohol Use Standard Drinks/Week Comments Yes 1 (1 standard drink = 0.6 oz pur e alcohol) 1-2 glasses or wine per week PHQ-2 Answer Date Recorded PHQ-2 TOTAL SCORE 0 01/21/2024 Social Connections Answer Date Recorded Do you often feel lonely or isolated from those around you? 0 07/16/2023 Financial Resource Strain Answer Date R ecorded Difficulty of Paying Living Expenses 3 07/16/2023 Difficulty of Paying Living Expenses Not on file 07/16/2023 Food Insecurity Answer Date Recorded Do you worry your food will run out before you are able to buy more? 1 07/16/2023 Transportation Needs Answer Date Record ed Does lack of transportation keep you from medica l appointments? 1 07/16/2023 Does lack of transportation keep you from work, meetings or getting things that you need? 1 07/16/2023 Housing Stability Answer Date Recorded What is your housing situation today? 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 Not on file Not on file Not on file Obstetrics History Para Term AB IAB SAB Ectopic Multiple Livin g Live Births 2 2 2 Date Outcome GA Total Labor Labor/2nd/3rd Weight Sex Type Anes PTL Layla A1 A5 Name Clin Term Term Last Filed Vital Signs Vital Sign Reading Time Taken Comments Blood Pressure 127/76 06/02/2024 7:59 AM CDT Pulse 63 06/02/2024 7:59 AM CDT Temperature 36.7 C (98 F) 06/14/2022 12:52 PM CDT Respiratory Rate 18 05/27/2022 1:12 PM CDT Oxygen Saturation 98% 06/02/2024 7:59 AM CDT Inhaled Oxygen Concentration - - Weight 71.9 kg (158 lb 9.6 oz) 06/02/2024 7:59 A M CDT Height 166.9 cm (5' 5.71) 01/21/2024 12:51 PM C DT Body Mass Index 25.83 01/21/2024 12:51 PM CDT Plan of Treatment Health Maintenance Due Date Last Done Comments RSV vaccine for adults or (1 - 1-dose 75+ series) 2021 Influenza for age 65+ 04/26/2024 06/12/2023 , 06/06/2022, 05/05/2021, Additional history exists BMI (ht and wt on same day) for age 18+ 01/20/2025 01/21/2024, 10/30/2023, 12/12/2022, Additional history exists Depression screening for age 12+ 01/20/2025 01/21/2024, 07/16/2023, 12/12/2022, Additional history exists Medicare Wellness for age 65+ 01/21/2025, 12/12/2022, 10/10/2021, Additional history exists Tetanus booster 10/21/2028 10/21/2018, 11/2007, 07/29/2008, Additional history exists Hepatitis C screening for ag e 18-79 Completed 09/04/2018 Tdap Completed 10/21/2018 Zoster (shingles) series for age 50+ Completed 03/14/2022, 11/06/2021 DEXA/DXA scan for age 65+ Completed 2023, 09/04/2018, 11/11/2014 COVID-19 vaccine series Completed 05/26/20 24, 06/12/2023, 12/20/2022, Additional history exists Pneumococcal series for age 65+ Completed 06/02/2024, 11/16/2015, 11/04/2013 Procedures Procedure Name Priority Date/Time Associated Diagnosis Comments XR DXA BONE DENSITY 2 SITES AXIAL Routine 01/29/2024 9:11 AM CDT Menopause ANTI HCV Routine 09/04/2018 10:28 AM CAR CHASER Need for hepatitis C screening test from [...] to assess therapeutic efficacy. Maggy Price PA-C [facility] 02/03/2024 Narrative 02/03/2024 4:00 PM CDT For Patients: Results are automatically released to your [facility] account once available, in compliance with federal regulations. This means that you may see your results before your provider has had a chance to review them. Please allow 2-3 business days for your provider to comment on the results. XR DXA Bone Mineral Density (BMD) EXAM LOCATION: [address] [address] PATIENT NAME: Marilyn Smith DATE OF : 1945 EXAM DATE: 01/29/2024 REQUESTING PROVIDER: Tamela Vogel PA GENDER AT : female HEIGHT: 5' 5.71 (01/21/2024) WEIGHT: 164 lb 3.2 oz (01/21/2024) MENOPAUSAL STATUS: Postmenopausal [...] two scanners are made by the same senior information security analyst. PROCEDURE: Dual-energy x-ray absorptiometry performed with routine [...] 2.0 Z-Score: - 0.4 Change from prior: None RESULTS FEMUR Left femoral neck BMD: 0.773 g/cm2 T-Score: - 1.9 Z-Score: - 0.1 Change from prior in 2019: Decrease 5.3%. Right femoral neck BMD: 0.743 g/cm2 T-Score: - 2.1 Z-Score: - 0.3 Change from prior in 2019: Decrease 5.9%. Left hip BMD: 0.785 g/cm2 T-Score: - 1.8 Z-Score: - 0.1 Change from prior in 2019: Decrease 3.7%. Right hip BMD: 0.764 g/cm2 T-Score: - 1.9 Z-Score: - 0.3 Change from prior in 2019: Decrease 2.8%. WHO criteria: Normal: T-score at or above -1 SD Osteopenia: T-score between -1.1 and -2.4 SD Osteoporosis: T-score at or below -2.5 SD FRAX RISK CALCULATION (USED FOR OSTEOPENIA ONLY): 10-year probability of major osteoporotic fracture: 15.6%. 10-year probability of hip fracture: 4.6%. Tamela PARRISH DEXA Final Res ult * ANTI HCV [[id number]] (09/04/2018 10:28 AM CAR CHASER) HEPATITIS C ANTIBODY Non-React marylou Non-React marylou 09/04/2018 6:44 PM CAR CHASER [facility] Comment:Antibodies to HCV no t detected; does not exclude the possibility of exposure to HCV. Blood BLOOD SPECIMEN / Unknown Venipuncture / Unknown 09/04/2018 10:28 AM CAR CHASER 09/04/2018 10:30 AM CAR CHASER Ananth Gale MD SEND OUTS Final Resu lt [facility] [address] [place] [address], from Last 3 Months or Most Recently Relevant to Health Maintenance Insurance [employer] MR [place] ONLY Advance Directives * Full Code (Latest Code Status on File) Date Activated Date Inactivated Comments 11/07/2007 1:25 AM 11/08/2007 1:01 PM Care Teams Software Licensing Specialist Relationship Specialty Start Date End Date Dennis Barnard MD [address] [place] [address] PCP - General Family Practice 06/02/24
[2024-08-03] MEDS: MAG HYDROX/ALUMINUM HYD/SIMETH 30 ML ORAL.SUSP PO (05:37)
== END 2024-08-03 06:13 | disposition home or self-care (01) ==
PROVIDERS: Emergency Provider Family Medicine; PCP Family Medicine
DX: R13.10 Dysphagia, unspecified (principal)
CPT/HCPCS: 99283; 99284; A9270

== ENCOUNTER 2024-08-15 16:51 | Emergency (ER) | payer MEDICARE, OTHER, SELFPAY ==
[2024-08-15 17:01] VITALS: BP 146/75; PULSE 74; RESP 18; TEMP 36.6; O2SAT 99; BMI 24.0
--- NOTE | 2024-08-15 17:16 | ED.GENADULT ---
HPI - General Adult General Time Seen by Provider: 17:21 Date Seen: 08/15/24 Chief complaint: Sore Throat Stated complaint: upper throat tissue pain, bloody expectorant Time Seen by Provider: 08/15/24 17:08 Source: patient and RN notes reviewed Mode of arrival: ambulatory Limitations: no limitations History of Present Illness HPI narrative: This 79-year-old female is coming in with concern of something stuck back by her left tonsil area. She had an EGD with Dr. Phoenix on August 11. Three biopsies were taken. She does not know the results. She started having dysphagia, is having difficulty swallowing any pills. She was initially seen on August 03 after feeling like she had a Tylenol that got stuck. She is also worried about being off her aspirin, was off her aspirin prior to the EGD but she was not told restarted. She reportedly had a TIA about a year ago and was told to stay on 81 mg aspirin. She just lets the aspirin dissolve in her mouth when she does take it. She does endorse some memory issues. After her visit here, continued to have symptoms and did have a few other visits with urgent care and her primary. Was ultimately put on omeprazole but then had difficulty swallowing those pills. She notes she continues to have difficulty swallowing pills since the EGD as well. It is not worse. She has been drinking, can eat and drink but does so slowly. Her her primary care provider possibly suspects with dysmotility. She notes no visual changes, no blurry or double vision. Her speech is normal. The last couple of days, has felt like there is something stuck in her left throat. This is not interfering with her ability to swallow or changing her baseline swallowing mechanism. She has tried gargling but she has such as significant gag reflex that has difficulty doing this. She put her finger in her throat area, cannot feel anything in there. Related Data Home Medications ?Medication ?Instructions ?Recorded ?Confirmed famotidine 20 mg tablet 20 mg PO HS 06/12/22 08/03/24 rosuvastatin 10 mg tablet 10 mg PO HS 06/12/22 08/03/24 lorazepam 0.5 mg tablet 0.5 mg PO ONCE PRN 09/13/22 08/03/24 aspirin 81 mg tablet,delayed 81 mg PO DAILY 05/27/24 08/03/24 release (Adult Aspirin Regimen) cholecalciferol (vitamin D3) 25 25 mcg PO DAILY 05/27/24 08/03/24 mcg (1,000 unit) chewable tablet fluticasone propionate 50 1 spray intranasal DAILY PRN 05/27/24 08/03/24 mcg/actuation nasal spray,suspension (24 Hour Allergy Relief) lutein 20 mg capsule 20 mg PO DAILY 05/27/24 08/03/24 meclizine 12.5 mg tablet 12.5 - 25 mg PO ONCE PRN 05/27/24 08/03/24 multivitamin 1 tab PO DAILY 05/27/24 08/03/24 escitalopram oxalate 5 mg tablet mg PO 08/03/24 Allergies Allergy/AdvReac Type Severity Reaction Status Date / Time fentanyl AdvReac Severe Verified 08/15/24 17:01 ciprofloxacin (From Cipro) AdvReac Intermediate Diarrhea Verified 08/15/24 17:01 codeine AdvReac Intermediate nausea and Verified 08/15/24 17:01 vomiting Review of Systems Narrative: As per HPI. PFSH PFSH Social History Smoking Status: Never smoker Do you use any of these nicotine containing products: None Second hand tobacco smoke exposure: No How often do you have a drink containing alcohol: never How often do you have six or more drinks on one occasion: Never AUDIT-C Alcohol total score: 0 Non-prescribed substance use: denies use service: No Exam Const: Vital Signs, click to edit/add: Vital Signs - 24 hr 08/15/24 17:01 Temperature 98 F Pulse Rate [Pulse Oximeter] 74 Respiratory Rate 18 Blood Pressure [Ri ght Upper Arm] 146/75 H Pulse Oximetry 99 Oxygen Delivery Me thod Room Air This 79-year-old female is alert, interactive, no apparent distress. Very talkative and speech is normal, no hoarseness. Pupils equal round reactive, sclera clear, extraocular muscles intact. Symmetrical facial function. On inspection of her dentition in oral mucosa, everything peers normal, tongue is normal. She has no visible tonsillar tissue. Palate elevates, she does tolerate a tongue depressor. Along the posterolateral left pharynx, can see a little erythematous change that looks like probable irritation or abrasion, no active bleeding. Patient does show me a little bit of bloody sputum that she states she spit up after she had her finger in her throat. Reviewed with her that if she coughed to this up, could be a little leftover irritation from EGD biopsies. She has no evidence of any active GI bleeding at this time. I see no active bleeding in her oropharynx. Jaw is nontender, no submental adenopathy. No palpable tenderness on her neck, she has no cervical adenopathy, no neck masses, no thyromegaly masses or nodules. Documenting provider has reviewed patient's vital signs: yes Course Course ED Course: Spent significant time reassuring, discussing with patient. She likely has globus sensation probably from some irritation from the EGD. I see no concerning physical changes. Do not feel she needs to proceed with any imaging. Would favor having her try some lozenges, drinking sips of fluids to help alleviate that sensation. She can try some Tylenol, discussed getting liquid Tylenol to be better able to swallow. Vital Signs Vital signs: Initial Vital Signs Temperature 98 F 08/15/24 17:01 Temperature Source Temporal Artery Scan 08/15/24 17:01 Pulse Rate 74 08/15/24 17:01 Pulse Rhythm Irregular 08/15/24 17:01 Respiratory Rate 18 08/15/24 17:01 Blood Pressure 146/75 H 08/15/24 17:01 Blood Pressure Mean 98 08/15/24 17:01 Blood Pressure Position High-Fowlers 08/15/24 17:01 Pulse Oximetry 99 08/15/24 17:01 Oxygen Delivery Method Room Air 08/15/24 17:01 Vital Signs Temperature 98 F 08/15/24 17:01 Pulse Rate 74 08/15/24 17:01 Respiratory Rate 18 08/15/24 17:01 Blood Pressure 146/75 H 08/15/24 17:01 Pulse Oximetry 99 08/15/24 17:01 Oxygen Delivery Method Room Air 08/15/24 17:01 Temperature 98 F 08/15/24 17:01 Pulse Rate 74 08/15/24 17:01 Respiratory Rate 18 08/15/24 17:01 Blood Pressure 146/75 H 08/15/24 17:01 Pulse Oximetry 99 08/15/24 17:01 Oxygen Delivery Method Room Air 08/15/24 17:01 Discharge Plan Discharge Clinical Impression: Globus sensation Patient Disposition: Home, Self-Care Condition: Stable Additional Instructions: Do believe the sense of something in the left tonsillar area is probably coming from irritation from the EGD. Can try lozenges, frequent sipping of fluids to help alleviate symptoms. Can try liquid Tylenol per bottle dosing. Do recommend that you follow up in clinic with your primary care provider. If you have ongoing issues with swallowing, may need to have a swallow study done. I do think at this time it is fine to resume your 81 mg aspirin. If you have further concerns or issues, please seek re-evaluation. Activity Level: Activity as Tolerated Prescriptions: No Action lorazepam 0.5 mg tablet 0.5 mg PO ONCE PRN aspirin [Adult Aspirin Regimen] 81 mg tablet,delayed release (DR/EC) 81 mg PO DAILY meclizine 12.5 mg tablet 12.5 - 25 mg PO ONCE PRN Rx Instructions: vertigo fluticasone propionate [24 Hour Allergy Relief] 50 mcg/actuation spray,suspension 1 spray intranasal DAILY PRN Rx Instructions: administer into each nostril lutein 20 mg capsule 20 mg PO DAILY Rx Instructions: give with meal/snack multivitamin Tablet 1 tab PO DAILY cholecalciferol (vitamin D3) 25 mcg (1,000 unit) tablet,chewable 25 mcg PO DAILY famotidine 20 mg tablet 20 mg PO HS rosuvastatin 10 mg tablet 10 mg PO HS escitalopram oxalate 5 mg tablet PO Follow Up/Referrals: Shirin Cutler MD [Primary Care Provider] - Stand Alone Forms: [employer] Info Instructions
[2024-08-15 18:09] VITALS: BP 146/75; PULSE 74; RESP 18; TEMP 36.6
== END 2024-08-15 18:09 | disposition home or self-care (01) ==
LOC: ED 17:48
PROVIDERS: Emergency Provider Family Medicine; PCP Family Medicine
DX: F45.8 Other somatoform disorders (principal)
CPT/HCPCS: 99283

== ENCOUNTER 2024-10-23 07:54 | Outpatient (CLI) | payer MEDICARE, OTHER, SELFPAY | END 2024-10-23 07:55 | disposition home or self-care (01) | LOC: RAD 07:56 | PROVIDERS: PCP Family Medicine; Visit Provider Internal Medicine | DX: R13.10 Dysphagia, unspecified (principal); K21.00 Gastro-esophageal reflux disease with esophagitis, without bleeding; R63.4 Abnormal weight loss | CPT/HCPCS: 74221 ==

== ENCOUNTER 2025-02-09 10:30 | Outpatient (RCR) | payer MEDICARE, OTHER, SELFPAY ==
--- NOTE | 2025-01-01 15:53 | PT.OPEX ---
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 SHE PARTICIPATED WITH PHYSICAL THERAPY IN [place] IN JULY FOR HER RIGHT SHOULDER/THORACIC PAIN WHICH, SHE REPORTS, DID IMPROVE BUT HAS HAD AN UPTICK IN HER RIGHT NECK TWINGES AND INTERMITTENT WHOLE ARM NUMBNESS THAT WAKES HER UP. SHE REPORTS SIGNIFICANT REFLUX WHICH DICTATES THE POSITION SHE SLEEPS WHICH IS UP ON A WEDGE. SHE HAS SLEPT THIS WAY FOR THE BETTER PART OF 10 YEARS. SHE REPORTS A H/O MULTIPLE TIA IN THE LAST SEVERAL YEARS THAT HAS CAUSED SHORT TERM MEMORY ISSUES BUT HAS BEEN CLEARED OF ANY VASCULAR OCCLUSIONS THE CAUSATIVE FACTOR OF HER SYMPTOMS. 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 THERE ARE NO PARTICULAR POSITIONS THAT AGGRAVATE HER SYMPTOMS CONSISTENTLY AND FREQUENT DOSES OF TYLENOL IMPROVE HER SYMPTOMS WHEN THE ARE PARTICULARLY BOTHERSOME. SHE RECENTLY TRIED TO PUSH PAST HER CLAUSTROPHOBIA AND UNDERGO AN MRI BUT WAS UNABLE TO CONTINUE. SHE IS INSTRUCTED TO RETURN TO DR. LINARES SHOULD SHE WANT TO PURSUE AN INJECTION FOR HER SYMPTOMS. SHE DOES HAVE AN RX FOR A MEDROL DOSE PACK AND HAS FILLED IT BUT DOES NOT FEEL HER SYMPTOMS ARE BAD ENOUGH TO ENDURE THE FEELING SHE GETS WHEN TAKING THE STEROID. SHE IS HOPING TO LEARN HOW SHE CAN BETTER MANAGE HER SYMPTOMS AND DECREASE THE OPPORTUNITIES FOR FLARE UPS. 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) Precautions Treatment Precautions/Contraindications PMHX: MULTIPLE TIA ~2-3 YRS, H /O RIGHT SAD ~>10 YRS, GERD, OCCIPITAL NEURALGIA, EUSTACHIAN TUBE DYSFUNCTION WITH H/O VERTIGO, DIZZINESS, AND VESTIBULAR MIGRAINES; CERVICAL HERNIATION OF UNKNOWN LEVEL, ANXIETY AND DEPRESSION, CLAUSTROPHOBIA, Therapy Limitations/Systems Review Other Medical Problem Objective Other/Pertinent Objective SPINAL ALIGNMENT/POSTURE : MODERATE FWD HEAD POSTURING CERVICAL ROM Flexion: WNL Extension: LIMITED 50% Right Rotation: LIMITED 50% Left Rotation: LIMITED 25% Right side bend: LIMITED 50% Left Side bend: LIMITED 50% SHOULDER AROM : WNL NECK/SHOULDER MMT: WNL Deep neck flexor endurance test: 16SEC Shoulder shrug: R 5/5 L 5/5 Shoulder flexion: R 5/5 L 5/5 Shoulder abduction: R 5/5 L 5/ 5 Shoulder External Rotation: R 5/5 L /5 Shoulder Internal Rotation: R 5/5 L 5/5 Elbow Flexion: R 5/5 L 5/5 Elbow Ext: R 5/5 L 5/5 Thumb Ext: R5 /5 L 5/5 FInger Abd: R 5/5 L 5/5 SPECIAL TEST Spurlings Test: (-) Cervical distraction test: (- ) Neural Tension Test(Median/ Ulnar/Radial): (-) Bakody Sign(C4-C6 Radiculopathy): (-) Cervical rotation/Lateral flexion Test: (-) Meg Test: NT Vertebral Artery Test: UNREMARKABLE Shoulder impingement HawkinsKennedy Test: (-) Neer Test: (-) Baudilio Test: (-) Horizontal Adduction Test: (-) JOINT MOBILITY/PALPATION: SIGNIFICANT SEGMENTAL HYPOMOBILITY C2-C7 BOTH PA AND SIDE GLIDE TX: SEATED CHIN TUCK 5 X 5SEC SEATED R/L CERVICAL ROTATION 3 X 10 SEC SEATED CERVICAL FLEX 3 X 10 SEC SEATED CERVICAL EXTENSION SCAP RETRACTION 10 X 3 SEC SHOULDER SHRUG W/BKWD ROTATION Assessment Assessment/Impression PATIENT IS A [address] PILY LINARES TO EVAL AND TREAT CERVICALGIA, CERVICAL SPONDYLOSIS, NECK PAIN . PATIENT DEMONSTRATES SIGNS AND SYMPTOMS CONSISTENT WITH CERVICALGIA, CERVICAL SPONDYLOSIS, NECK PAIN CONTRIBUTING TO THEIR FUNCTIONAL IMPAIRMENTS OF NECK MVMTS FOR DRIVING, PROLONGED POSITIONING, SLEEPING . PATIENT DESCRIBES THE FOLLOWING TRIGGERS NECK MVMTS NEEDED FOR DRIVING, POSITIONS DURING SLEEPING, REPETITIVE OH MVMTS WHICH ARE ALLEVIATED BY REST, PO OTC, AVOIDING NECK MVMTS . PATIENT HAS NOTABLE OBJECTIVE FINDING INCLUDING DECREASED ROM R ROTATION, RIGHT SIDE BEND, CERVICAL EXT WHICH ALL ARE CONTRIBUTING TO THE CLINICAL IMPRESSION. PATIENT IS A GOOD CANDIDATE FOR SKILLED PHYSICAL THERAPY TO ADDRESS AFOREMENTIONED DEFICITS ABOVE IN ORDER TO RETURN TO ASYMPTOMATIC STATUS AND RETURN TO UNRESTRICTED MVMTS. INTERVENTION IS NECESSARY BY WAY OF THERAPEUTIC EXERCISE, MANUAL THERAPY, NEUROMUSCULAR RE- EDUCATION, STABILIZATION/ PROPRIOCEPTION, MODALITIES FOR SYMPTOM MGMT, PATIENT EDUCATION PLEASE REFER TO APPROPRIATE SECTION WITHIN THIS EVALUATION FOR COMPLETE LIST OF GOALS AND PLAN OF CARE . DISCHARGE PLAN AND CRITERIA IS FOR PATIENT TO ACHIEVE THE GOALS LISTED BELOW OR UNTIL MAX POTENTIAL MET. PATIENT VERBALIZED UNDERSTANDING AND AGREEABLE TO POC, FREQ, AND GOALS ESTABLISHED. Primary Functional Limitations PROLONGED POSITIONING SLEEPING REPETITIVE OH MVMTS W/BUE Plan of Care Rehabilitation Potential Good Physical Therapy Goals 1. PATIENT WILL BE EDUCATED ON POSTURE, BODY MECHANICS AND THE IMPORTANCE OF EA IN THE NEXT 2-3 WEEKS IN ORDER TO DECREASE STRESS TO THE JOINT/ MM AND TO DECREASE THEIR SYMPTOMS. 2. PATIENT WILL DECREASE THEIR PAIN AT WORST FROM 5/10 TO >/ 3/10 IN THE NEXT 4-6 WEEKS WE PROGRESS THEIR PHYSICAL THERAPY WELL DURING DAILY ACTIVITIES. 3. 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 4. PATIENT WILL BE INDEPENDENT WITH HER INDIVIDUALIZED AND COMPREHENSIVE HEP WITHIN 6-8 WEEKS FOR PROGRESSION OF THE ABOVE GOALS, ONGOING SELF MGMT OF PAIN/SX, ONGOING, SELF IMPROVEMENTS IN ROM, POSTURE, AND RETURN TO BASELINE WITH DAILY ACTIVITIES, PEER/FAMILY CENTERED ACTIVITIES WITHOUT FLARE UPS OF SYMPTOMS/PAIN. Coordination/Communication With Referral Source Treatment Plan/Direct Interventions Electrical Stimulation,Heat, Ice/Cold/Vasopneumatic,Joint Mobilization,Manual Therapy, Neuromuscular Re-ed, Therapeutic Activities, Therapeutic Exercises, Ultrasound Frequency/Duration 1-2X/WK Patient Will Be Discharged From Therapy Completion of LTG(s), Independently Progressing Evaluation Billing Untimed Code Treatment Minutes 30 PT Eval No Charge No Complexity Moderate Certification Information Initial Certification Date 01/01/25 Ending Certification Date 03/31/25 Provider Signature Required Yes Provider Signature Shows Agreement With POC & Medical Necessity Physician NPI Number Write NPI# Here Physician Comment/Change : Physician Signature & Date Requested Please Sign/Date Here
== END 2025-03-17 17:28 | disposition home or self-care (01) ==
PROVIDERS: PCP Family Medicine; Visit Provider Family Medicine
DX: M47.812 Spondylosis without myelopathy or radiculopathy, cervical region (principal); M54.2 Cervicalgia; M79.2 Neuralgia and neuritis, unspecified; Z51.89 Encounter for other specified aftercare
CPT/HCPCS: 97110; 97162